=== PATIENT | female | born 1940 | race Caucasian/White ===

== ENCOUNTER 2017-12-31 14:47 | Outpatient (CLI) | payer MEDICARE, BC ==
[~2017-12-31 14:47] MED LIST: Gadobenate Dimeglumine 529 MG/1 ML (20ML VIAL) ONE
== END 2017-12-31 14:48 | disposition home or self-care (01) ==
LOC: BICMRI 14:47
PROVIDERS: ATTEND Internal Medicine
DX: R42 Dizziness and giddiness (principal); R11.0 Nausea; H91.93 Unspecified hearing loss, bilateral; G93.9 Disorder of brain, unspecified; T14.90XS Injury, unspecified, sequela
CPT/HCPCS: 70553; 82565; A9579

== ENCOUNTER 2018-03-23 14:32 | Inpatient (IN) | payer MEDICARE, BC ==
[2018-03-23 16:55] LABS: #Eosinphils 0.2 thou/uL (0.0-0.7); #Lymphocytes 0.9 thou/uL (1.20-3.40); #Monocytes 0.4 thou/uL (0.11-0.59); #Neutrophils 4.7 thou/uL (1.40-6.50); %Basophils 0.3 % (0.0-1.0); %Eosinophils 2.7 % (0.0-10.0); %Lymphocytes 14.6 % (21.0-51.0); %Neutrophils 75.5 % (42.0-75.0); Hemoglobin 12.9 g/dL (12.0-16.0); Mean Corpuscular HGB CONC 33.3 g/dL (32.0-36.0); Mean Corpuscular Hemoglobin 30.2 pg (27.0-31.0); Mean Corpuscular Volume 90.7 fL (78.0-98.0); Mean Platelet Volume 6.5 fL (7.4-10.4); Platelet Count 144 thou/uL (130-400); RBC Distribution Width 11.8 % (11.5-14.5); Red Blood Cell (RBC) Count 4.26 mill/uL (4.20-5.40); White Blood Cell (WBC) Count 6.2 thou/uL (4.8-10.8)
[2018-03-23 17:01] LABS: INR-International Normal Ratio 1.1; Prothrombin Time 14.7 SEC (12.0-14.7)
[2018-03-23 17:02] LABS: PTT 31.4 SEC (22.9-36.1)
--- NOTE | 2018-03-23 17:06 | RAD ---
LEFT HIP TWO VIEWS: 03/23/18 HISTORY: Fall. Left hip pain. FINDINGS: Cortical disruption at the subcapital level of the hip with mild valgus angulation. Mild degenerative changes of the hip. IMPRESSION: Subcapital fracture left hip. POS: [facility]
--- NOTE | 2018-03-23 17:07 | RAD ---
PORTABLE CHEST ONE VIEW: 03/23/18 at 4:02 p.m. HISTORY: Left sided rib pain, chest pain, trauma. FINDINGS/IMPRESSION: The heart size is borderline. The lungs are well expanded without lobar consolidation, pneumothoraces or pleural effusions. There are degenerative changes in the spine. POS: [facility]
[2018-03-23 17:21] LABS: ALT (SGPT) 9 U/L (8-55); AST (SGOT) 18 U/L (5-34); Albumin 3.9 g/dL (3.4-4.8); Alkaline Phosphatase 66 U/L (40-150); Anion Gap 10 mmol/L (10-20); BUN (Urea Nitrogen) 22 mg/dL (9.8-20.1); Bilirubin, Total 1.8 mg/dL (0.2-1.2); Calc. Creatinine Clearance 0 mL/min (70-130); Calcium 8.6 mg/dL (7.8-10.44); Carbon Dioxide 25 mmol/L (23-31); Chloride 101 mmol/L (98-107); Estimated GFR-MDRD 60; Glucose 106 mg/dL (83-110); Potassium 3.7 mmol/L (3.5-5.1); Protein, Total 5.9 g/dL (6.0-8.3); Sodium 132 mmol/L (136-145)
--- NOTE | 2018-03-23 17:22 | RAD ---
AP PELVIS 03/23/18 HISTORY: Fall. Left hip pain. FINDINGS/IMPRESSION: There is a subcapital fracture involving the left femur. POS: [facility]
[2018-03-23] MEDS ORDERED: Dextrose 50% Abboject 50 ML SYRINGE SLOW IVP PRN (17:25)
[2018-03-23] MEDS ORDERED: Dextrose 5% in Water 1,000 ML IV PRN (17:25)
[2018-03-23] MEDS ORDERED: traMADol HCl 50 MG TAB PO PRN (17:28)
--- NOTE | 2018-03-23 18:43 | CT ---
CT OF THE BRAIN WITHOUT CONTRAST: 03/23/18 INDICATION: History of fall with head injury. COMPARISON: MRI of the brain dated . FINDINGS: No acute infarct, hemorrhage or hydrocephalus is evident. No midline shift is present. Skull and extr acranial soft tissues are unremarkable. Chronic ischemic change and generalized cerebral atrophy is s table. IMPRESSION: No acute intracranial abnormality. POS: [facility]
--- NOTE | 2018-03-23 19:14 | HP ---
DATE OF ADMISSION: 03/23/2018 HISTORY OF PRESENT ILLNESS: Ms. Paula is a 77-year-old woman who lives independently. The patient was in her usual state of health yesterday. She had abducted a puppy recently. The patient recalls standing on one leg yesterday while she was trying to put on her shoes. She was tripped by her dog which came at her full speed. The patient was knocked down to the ground, striking her forehead, but denied any loss of consciousness. She was able to get up and has been trying to ambulate since yesterday. She immediately felt pain upon impact, however, have been using a cane to walk. Her pain had intensified. As a result, the patient presented to Emergency Department today. She denies any headaches, photophobia, dyspnea, syncope, or chest pain. She is usually very active. She walks about half a mile a day at a stretch without any shortness of breath. She exercises regularly. PAST MEDICAL HISTORY: Pertinent for hypothyroidism, gastroesophageal reflux disease, and chronic depression. PAST SURGICAL HISTORY: Pertinent for a transnasal surgery to repair a spinal fluid leak about 6 years ago. Traumatic brain injury with cerebral concussion, which happened about 7 years ago when she fell from a short ladder. SOCIAL HISTORY: The patient lives independently. She has no children. She admits to occasional intake of ethanol in moderate amount. She denies any cigarette smoking or illicit drug abuse. 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 FAMILY HISTORY: Noncontributory for this patient's age. PREHOSPITALIZATION MEDICATIONS: Include omeprazole 20 mg p.o. daily, bupropion 300 mg p.o. daily, Synthroid 75 mcg p.o. daily. REVIEW OF SYSTEMS: A 10-point review of systems essentially unremarkable except for as stated in past medical history and chief complaint. PHYSICAL EXAMINATION: GENERAL: This reveals a 77-year-old normally developed woman who is otherwise coherent and interactive and appears stated age. The patient is alert and oriented x3. She appears to be in no acute distress at the time of my evaluation. VITAL SIGNS: Include blood pressure 106/83, pulse is 88, respiratory rate 16, temperature is 98.2 degrees Fahrenheit. Oxygen saturation 96% on room air. She rates the pain now at 5/10. HEENT: Reveals a left forehead superficial laceration requiring no suture repair. No active bleeding or soft tissue hematoma is present. Both pupils are equal, round, and reactive to light and accommodation. Extraocular muscles are intact bilaterally. No scleral icterus is present. Oral mucosa is pink and moist. No lesions are noted. She has no nasal discharge present. Cervical spine is nontender to palpation, in the range of motion. CHEST: Chest wall is stable. No gross deformities or step-offs are present. CARDIOVASCULAR: Heart reveals regular rate and rhythm, no murmurs or gallops auscultated. LUNGS: Clear to auscultation bilaterally. Breathing regular and unlabored. ABDOMEN: Soft, nontender, nondistended. Bowel sounds in all four quadrants appear normoactive. Liver and spleen nonpalpable below costal margin. EXTREMITIES: Reveal 2+ radial and pedal pulses bilaterally. No ankle edema is present. MUSCULOSKELETAL: Reveals 5/5 muscle strength in bilateral upper and right lower extremities. Range of motion about the left hip is restricted due to pain. PERTINENT LABORATORY DATA: Today includes a CBC with 6200 white blood cell, hemoglobin and hematocrit 12.9 and 38.6 respectively. Platelet count is 144, 000. PTT and INR are normal at 31.4 seconds and 1.1 respectively. Metabolic profile : Sodium 132, potassium 3.7, chloride is 101, bicarbonate is 25, BUN 22, creatinine 0.91, glucose is 106. Total bilirubin is 1.8. AST and ALT 18 and 9 respectively. I personally reviewed all radiographic studies to include a chest x-ray which is unremarkable for any acute intrathoracic pathology. CT scan of the brain reveals no acute pathology. X-ray of the pelvis and left hip remarkable for complete left hip subcapital femur fracture. IMPRESSION: 1. Status post ground level fall. 2. Closed left hip subcapital femur fracture. 3. History of gastroesophageal reflux disease. 4. History of hypothyroidism. 5. History of chronic depression. PLAN: 1. Orthopedic surgical consultation with Dr. Lake regarding the left hip fracture. 2. Patient will be admitted to surgical floor. Nonpharmacological VTE prophylaxis will be initiated at this time. 3. We will ask Physical and occupational therapy to evaluate the patient following surgery. 4. We will also ask PM&R to evaluate the patient for possible inpatient rehabilitation post-discharge. 5. This patient is certainly hemodynamically and neurologically stable to proceed with orthopedic surgery for repair of the left hip fracture. She has at moderate risk for perioperative cardiopulmonary event. We will obtain a 12-lead EKG but given the patient's high functional and physical status , she does not require any further cardiac workup. The patient has indicated understanding of the information provided. She has granted consent for this admission. TRACEY
[2018-03-23] MEDS: Acetaminophen 500 MG TAB PO SCH (19:20)
[2018-03-23] MEDS ORDERED: CEFAZOLIN/Water 2 GM/20 ML SYRINGE SLOW IVP SCH (19:30)
[2018-03-23] MEDS: Senokot S 8.6-50 MG TAB PO SCH (20:36)
[2018-03-23] MEDS: Sodium Chloride 0.9% 1,000 ML IV SCH (20:36)
[2018-03-23 21:51] VITALS: BMI 23.3
[2018-03-24] MEDS: Acetaminophen 500 MG TAB PO SCH ×5 (00:06→23:34)
[2018-03-24] MEDS: Sodium Chloride 0.9% 1,000 ML IV SCH ×4 (02:39→21:02)
--- NOTE | 2018-03-24 03:53 | CON ---
ORTHOPEDIC CONSULTATION NOTE DATE OF CONSULTATION: 03/23/2018 REQUESTING PHYSICIAN: Dr. Mihir Kearnye. BRIEF HISTORY OF PRESENT ILLNESS: Ms. Paula is a 77-year-old lady who lives independently. She repo rts on the day prior to admission, she was trying to put on a pair of shoes when her puppy knocked he r to the ground. The patient struck her forehead as well as landed on her left hip. She was able to get up; however, has had increasing pain with attempted ambulation and as such presented to the [facility] department earlier this evening where workup included x-rays of her left hip that showed a nond isplaced femoral neck fracture. The patient now admitted to the Trauma Service with orthopedic consu ltation requested. PAST MEDICAL HISTORY: Remarkable for gastroesophageal reflux, hypothyroidism, and a history of depre ssion. PAST SURGICAL HISTORY: Includes prior traumatic brain injury with concussion following a fall with s ubsequent repair of a spinal fluid leak. MEDICATIONS: Include omeprazole, bupropion, and Synthroid. ALLERGIES: None known. FAMILY HISTORY: Noncontributory. SOCIAL HISTORY: The patient was independent. She reports alcohol consumption socially. She denies cigarette smoking or drug use. REVIEW OF SYSTEMS: Patient denies recent fevers, chills, or sweats. She denies chest pain or shortn ess of breath. She denies numbness or tingling in the lower extremities. PHYSICAL EXAMINATION: VITAL SIGNS: Temperature 98.2, heart rate of 88, respiratory rate of 16, and blood pressure 106/83. GENERAL: The patient is found to be awake, alert, and oriented. She is examined in her hospital bed on tower 3. HEENT: Remarkable for a superficial left forehead laceration that did not require suture repair. Ot herwise, atraumatic and normocephalic. HEART: Shows a regular rate and rhythm without murmur or gallop. LUNGS: Clear to auscultation with good breath sounds. Chest wall is nontender. ABDOMEN: Soft and nontender. PELVIS: Stable. EXTREMITIES: Remarkable for bilateral upper extremities that are atraumatic. Right lower extremity also atraumatic. Left lower extremity with an atraumatic knee, ankle, and foot. She is found to hav e groin pain with any type of log rolling of this left lower extremity. She also has pain to direct palpation in the groin region. Distally, she has intact sensation. She is wiggling her toes and has a 1+ dorsalis pedis pulse. X-RAYS: Two view x-ray of this left hip remarkable for a femoral neck fracture, but without displace ment. LABORATORY DATA: She is found to have a white count of 6.2, hematocrit of 38.6 and 144,000 platelets . She has an INR of 1.1. ASSESSMENT: A 77-year-old active lady who is a community ambulator without assisted device, now stat us post ground level fall at home. The patient found to have a nondisplaced femoral neck fracture. PLAN: At this time, the patient is admitted to the Trauma Service. We will plan to proceed with a c annulated screw stabilization of this nondisplaced fracture tomorrow early afternoon. Today, I discu ssed with patient the risks and benefits of surgery including alternatives. Alternatives including h emiarthroplasty or total hip replacement, which I believe is necessary given the nondisplaced nature of her fracture. The risks include, but are not limited to bleeding, infection, nerve injury, DVT, P E, malunion, nonunion, hardware failure, loss of limb or life. Patient appears to understand and harris s wish to proceed. Consent will be obtained prior to surgery tomorrow.
[2018-03-24 06:16] LABS: #Eosinphils 0.2 thou/uL (0.0-0.7); #Monocytes 0.5 thou/uL (0.11-0.59); #Neutrophils 4.3 thou/uL (1.40-6.50); %Basophils 0.1 % (0.0-1.0); %Monocytes 8.1 % (0.0-10.0); %Neutrophils 71.7 % (42.0-75.0); Hemoglobin 12.2 g/dL (12.0-16.0); Mean Corpuscular Hemoglobin 29.7 pg (27.0-31.0); Mean Corpuscular Volume 89.9 fL (78.0-98.0); Mean Platelet Volume 6.4 fL (7.4-10.4); Platelet Count 145 thou/uL (130-400); Red Blood Cell (RBC) Count 4.12 mill/uL (4.20-5.40)
[2018-03-24 06:23] LABS: Anion Gap 10 mmol/L (10-20); BUN (Urea Nitrogen) 17 mg/dL (9.8-20.1); Calc. Creatinine Clearance 57 mL/min (70-130); Calcium 8.6 mg/dL (7.8-10.44); Carbon Dioxide 26 mmol/L (23-31); Chloride 106 mmol/L (98-107); Estimated GFR-MDRD 64; Glucose 86 mg/dL (83-110); Magnesium 1.7 mg/dL (1.6-2.6); Phosphorus 2.9 mg/dL (2.3-4.7); Potassium 3.8 mmol/L (3.5-5.1); Sodium 138 mmol/L (136-145)
[2018-03-24] MEDS: Senokot S 8.6-50 MG TAB PO SCH ×2 (07:29→21:02)
[2018-03-24] MEDS: Polyethylene Glycol 3350 17 GM Packet PO SCH (07:29)
[2018-03-24] MEDS ORDERED: buPROPion 75 MG TAB PO SCH (09:00)
[2018-03-24] MEDS ORDERED: Ondansetron PF 4 MG/2 ML Vial ONE (10:54)
[2018-03-24] MEDS ORDERED: Glycopyrrolate 0.2 MG/ML 5 ML SYRINGE ONE (10:54)
[2018-03-24] MEDS ORDERED: PROPOFOL 200 MG/20 ML VIAL ONE (10:54)
[2018-03-24] MEDS ORDERED: Dexamethasone 20 MG/5 ML VIAL ONE (10:54)
[2018-03-24] MEDS ORDERED: Magnesium Sulfate 2 GM in Sodium Chloride 0.9% 100 ML IVPB SCH (12:00)
--- NOTE | 2018-03-24 12:09 | PRG ---
DATE OF SERVICE: 03/24/2018 SUBJECTIVE: Ms. Paula is a 77-year-old woman who was admitted following ground level fall, resulting in a closed left subcapital femoral fracture. This morning, she reports adequate pain control. She denies any nausea or vomiting, chest pain or dyspnea. Urinary output is adequate. OBJECTIVE: VITAL SIGNS: This morning includes blood pressure 113/71, pulse is 79, respiratory rate is 18, tempe rature is 98.4 degrees Fahrenheit, oxygen saturation 92% on room air. HEART: Reveals regular rate and rhythm. No murmurs or gallops auscultated. CHEST: Clear to auscultation bilaterally. Breathing is regular and unlabored. ABDOMEN: Soft, nontender, nondistended. EXTREMITIES: Reveals 2+ radial and pedal pulses bilaterally. No ankle edema is present. NEUROLOGIC: Reveals no focal deficits present. LABORATORY DATA: Today includes a CBC with 6000 white blood cells, hemoglobin and hematocrit stable at 12.2 and 37.0 respectively, platelet count is 145,000. Metabolic profile, sodium 138, potassium i s 3.8, chloride is 106, bicarbonate 26, BUN 17, creatinine 0.86, glucose is 86, magnesium 1.7, phosph orus is 2.9. IMPRESSION: 1. Post injury day number 2, status post ground level fall. 2. Closed left hip fracture. 3. Acute hypomagnesemia. 4. Acute hypokalemia. 5. Acute hypophosphatemia. PLAN: 1. Correct abnormal electrolytes. 2. The patient is hemodynamically stable to proceed with orthopedic surgery for repair of the left h ip fracture. Above findings and plan discussed with the patient who indicates understanding of the information giv en. We anticipate inpatient rehabilitation post discharge.
[2018-03-24] MEDS ORDERED: Potassium Phosphate 15 MMOL, Magnesium Sulfate 2 GM in Sodium Chloride 0.9% 250 ML 250 ML IVPB SCH (12:30)
[2018-03-24] MEDS ORDERED: CEFAZOLIN 2 GM/50 ML BAG ONE (13:07)
[2018-03-24] MEDS ORDERED: Fentanyl 100 MCG/2 ML VIAL ONE ×2 (15:15→15:52)
[2018-03-24] MEDS ORDERED: SUGAMMADEX SODIUM 200 MG/2 ML VIAL ONE (15:25)
[2018-03-24] MEDS ORDERED: Promethazine HCl 25 MG/ML VIAL SLOW IVP PRN ×2 (15:32→16:16)
[2018-03-24] MEDS ORDERED: Promethazine HCl 25 MG/ML VIAL IM PRN ×2 (15:32→16:16)
[2018-03-24] MEDS ORDERED: Ondansetron HCl/PF 4 MG/2 ML Vial IVP PRN ×2 (15:32→16:16)
--- NOTE | 2018-03-24 16:05 | RAD ---
LEFT HIP TWO VIEWS: History: Fracture. Comparison: 03-23-18 FINDINGS: Two fluoroscopic images were obtained. There are three percutaneous partially threaded fracture screw s through the left femoral neck in good position. IMPRESSION: Fluoroscopy time 42.9 seconds. POS: [facility]
--- NOTE | 2018-03-24 17:18 | EKG ---
Test Reason : PREOP Blood Pressure : / mmHG Vent. Rate : 078 BPM Atrial Rate : 078 BPM P-R Int : 164 ms QRS Dur : 086 ms QT Int : 390 ms P-R-T Axes : 029 054 073 degrees QTc Int : 444 ms Normal sinus rhythm Low voltage QRS No previous ECGs available Confirmed by DR. Mitzi LIU ([id number]) on 03/24/2018 5:18:23 PM Referred By: COLTON Confirmed By:DR. Mitzi LIU
[2018-03-24] MEDS: Aspirin 81 mg Enteric Coated Tablet PO SCH (21:02)
--- NOTE | 2018-03-24 21:39 | OP ---
DATE OF PROCEDURE: 03/24/2018 PREOPERATIVE DIAGNOSIS: Left femoral neck fracture. POSTOPERATIVE DIAGNOSIS: Left femoral neck fracture. SURGICAL PROCEDURE: Closed reduction and percutaneous screw fixation of left femoral neck. ANESTHESIA: General. SURGEON: Chilo Lake M.D. ESTIMATED BLOOD LOSS: 10 mL IMPLANTS: Synthes 7.3 mm cannulated screws x3. COMPLICATIONS: None. DRAINS: None. SPECIMEN: None. OUTCOME: Near anatomic alignment. INDICATIONS: The patient is a pleasant 77-year-old lady status post ground level fall at home sustai alex a nondisplaced left femoral neck fracture. After discussion with patient including risks and be nefits, we have decided to proceed with closed reduction and percutaneous screw fixation to stabilize the fracture in hopes of providing stability while healing occurs and returning the patient to her n ormal activities. Informed consent has been obtained. I believe all questions have been answered. DESCRIPTION OF PROCEDURE: The patient was brought to the operating room and a timeout performed foll owed by induction of general anesthesia. Next, the patient was positioned supine on the fracture tab le with the injured extremity held in longitudinal traction and the well leg scissored such that AP a nd lateral C-arm images of the left hip could be obtained. Next, a sterile prep and drape was perfor med of the left lateral thigh. A small vertical incision was made after C-arm localization for an ap propriate starting point for the guidewires. Once the skin was sharply incised, the initial inferior , but centrally positioned pin was applied and positioned under C-arm guidance. Once appropriately p ositioned, a superior anterior and superior posterior threaded guidewires were then passed respective ly using the jig. Next, measurement was taken off these guidewires and then the lateral cortices rich und each of the guidewires was further prepared with the cannulated drill. Next, each of the 3 screw s were inserted in standard technique under fluoroscopy guidance getting excellent compression and st abilization of the fracture. The threaded guidewires were then removed and final C-arm images obtain ed. The wound was then irrigated with bulb syringe and closed in layers with 2-0 Vicryl subcutaneous ly and then tram for the skin. Xeroform gauze and tape dressing was applied to the thigh and then the patient was transferred to recovery room in stable condition. There were no complications. The patient did tolerate the procedure well.
[2018-03-25] MEDS: traMADol HCl 50 MG TAB PO PRN (03:27)
[2018-03-25] MEDS: Acetaminophen 500 MG TAB PO SCH ×4 (05:50→22:22)
[2018-03-25] MEDS: Levothyroxine Sodium 75 MCG TAB PO SCH (05:50)
[2018-03-25 05:53] LABS: #Lymphocytes 0.5 thou/uL (1.20-3.40); #Monocytes 0.5 thou/uL (0.11-0.59); #Neutrophils 4.2 thou/uL (1.40-6.50); %Basophils 0.2 % (0.0-1.0); %Eosinophils 0.7 % (0.0-10.0); %Monocytes 10.1 % (0.0-10.0); %Neutrophils 78.9 % (42.0-75.0); Hemoglobin 11.5 g/dL (12.0-16.0); Mean Corpuscular HGB CONC 32.8 g/dL (32.0-36.0); Mean Corpuscular Hemoglobin 30.1 pg (27.0-31.0); Mean Corpuscular Volume 91.9 fL (78.0-98.0); Mean Platelet Volume 6.9 fL (7.4-10.4); Platelet Count 127 thou/uL (130-400); RBC Distribution Width 11.8 % (11.5-14.5); Red Blood Cell (RBC) Count 3.81 mill/uL (4.20-5.40); White Blood Cell (WBC) Count 5.3 thou/uL (4.8-10.8)
[2018-03-25 06:11] LABS: Anion Gap 10 mmol/L (10-20); BUN (Urea Nitrogen) 16 mg/dL (9.8-20.1); Calc. Creatinine Clearance 66 mL/min (70-130); Carbon Dioxide 25 mmol/L (23-31); Chloride 106 mmol/L (98-107); Estimated GFR-MDRD 76; Glucose 96 mg/dL (83-110); Phosphorus 3.3 mg/dL (2.3-4.7); Potassium 4.2 mmol/L (3.5-5.1); Sodium 137 mmol/L (136-145)
[2018-03-25] MEDS: Sodium Chloride 0.9% 1,000 ML IV SCH (09:48)
[2018-03-25] MEDS: Bupropion 150 MG XL TAB PO SCH (09:58)
[2018-03-25] MEDS: Aspirin 81 mg Enteric Coated Tablet PO SCH ×2 (09:58→22:20)
[2018-03-25] MEDS: Senokot S 8.6-50 MG TAB PO SCH ×2 (09:59→23:03)
[2018-03-25] MEDS: Polyethylene Glycol 3350 17 GM Packet PO SCH (09:59)
--- NOTE | 2018-03-25 12:29 | PRG ---
DATE OF SERVICE: 03/25/2018 SUBJECTIVE: Ms. Paula is a 77-year-old woman admitted for a ground level fall resulting in a left subcapital femoral neck fracture. The patient is postoperative day #1. She states that her pain is surprisingly improved. She did have a Hoskins catheter placed last night for patient comfort, and she is still on IV fluids at 100 mL per hour. The patient is tolerating a diet and has yet to work with PT today. OBJECTIVE: VITAL SIGNS: Temperature is 98.3, blood pressure 114/72, heart rate is 73, respiratory rate is 16. She is 95% on room air. GENERAL: This is a 77-year-old female lying supine in bed, in no acute distress. HEENT: Normocephalic, atraumatic. NECK: Trachea is midline. No JVD is appreciated. RESPIRATORY: Equal rise and fall. Bilateral breath sounds clear to auscultation upper and lower bilaterally. CARDIOVASCULAR: Regular rate and rhythm. No murmurs appreciated. ABDOMEN: Soft, nontender. EXTREMITIES: Slight tenderness to left hip, dressings dry. Moves all extremities well. She does have sensation to all of her extremities and strong pulses. PSYCHIATRIC: Normal mood and affect. NEUROLOGIC: Alert and oriented to person, place, time, and event. SKIN: [place], warm and dry. LABORATORY DATA: From today, white blood cell count of 5.3, platelets of 127, hemoglobin and hematocrit 11.5 and 35.0 respectively. Chemistry: Sodium is 137 , potassium is 4.2, chloride is 106, CO2 is 25, BUN is 16, creatinine is 0.74. Phos is 3.3 and mag is 2.0. ASSESSMENT: 1. Postop day #1, postinjury day #3, status post ground level fall. 2. Subcapital left hip fracture. 3. Acute hypomagnesemia, resolved. 4. Acute hypokalemia, resolved. 5. Acute hypophosphatemia, resolved. 6. Acute traumatic pain, improving. PLAN: 1. Continue to monitor electrolytes. No replacement needed this morning. Continue regular diet. 2. The patient is hemodynamically stable. We will work with PT. 3. Rehab screen has been placed. 4. Hope to discharge tomorrow or over this weekend to inpatient rehabilitation. 5. Remove Hoskins catheter. I have explained to the patient, she verbalizes understanding. 6. Stop IV fluids. 7. Pain control as needed. 8. Continue all other supportive care including DVT prophylaxis. This plan was discussed with Dr. Kearney and can be updated as needed. TRACEY
[2018-03-25] MEDS ORDERED: Cepastat Lozenges 1 LOZ PO PRN (20:30)
[2018-03-26] MEDS: Levothyroxine Sodium 75 MCG TAB PO SCH (05:53)
[2018-03-26] MEDS: Acetaminophen 500 MG TAB PO SCH (05:53)
[2018-03-26] MEDS: Aspirin 81 mg Enteric Coated Tablet PO SCH (09:28)
[2018-03-26] MEDS: Polyethylene Glycol 3350 17 GM Packet PO SCH (09:28)
[2018-03-26] MEDS: Bupropion 150 MG XL TAB PO SCH (09:28)
[2018-03-26] MEDS: Senokot S 8.6-50 MG TAB PO SCH (09:28)
[2018-03-26] MEDS: traMADol HCl 50 MG TAB PO PRN (09:31)
[2018-03-26 16:09] VITALS: BP 122/80; TEMP 98.1
--- NOTE | 2018-03-26 20:07 | DIS ---
DATE OF ADMISSION: 03/23/2018 DATE OF DISCHARGE: 03/26/2018 ADMISSION DIAGNOSES: 1. Status post ground level fall. 2. Left subcapital femur fracture. 3. History of gastroesophageal reflux disease. 4. History of hypothyroidism. 5. History of depression. 6. Acute traumatic pain. DISCHARGE DIAGNOSES: 1. Status post ground level fall. 2. Left subcapital femur fracture. 3. History of gastroesophageal reflux disease. 4. History of hypothyroidism. 5. History of depression. 6. Acute traumatic pain. ENTRY LEVEL MANAGER: Dr. Lake, Orthopedic Surgery. PROCEDURES: On 03/24/2018, closed reduction and percutaneous screw fixation of the left femoral neck with Dr. Lake. HOSPITAL COURSE: This is a 77-year-old female who presented to [facility] after susta ining a mechanical fall. She was found to have the above injuries. Orthopedic Surgery evaluated the patient and she underwent operative intervention to her injuries on 03/24/2018. Postoperatively, th e patient did well. Pain was controlled via p.o. analgesics. She was mobilizing with physical thera py and tolerating a general diet. She was seen and evaluated by inpatient rehabilitation and evelioe d on 03/26/2018 after clearance with the consulting teams. She was deemed medically stable for disch arge on 03/26/2018. DISCHARGE DISPOSITION: Inpatient rehabilitation. DISCHARGE CONDITION: Good. PHYSICAL EXAMINATION: VITAL SIGNS: Temperature 97.8, pulse 72, respirations 16, O2 sat 97% on room air, blood pressure 149 /76. GENERAL: Elderly appearing female in no acute distress, sitting in bed. PULMONARY: Normal work of breathing, symmetric rise. CARDIOVASCULAR: Regular rate and rhythm. GASTROINTESTINAL: Abdomen is soft, nontender, nondistended. MUSCULOSKELETAL: Moves all extremities x4. NEUROLOGIC: No focal deficit is noted. DISCHARGE INSTRUCTIONS: Discharge instructions were provided to the patient and the accepting facili ty. She is 50% weightbearing to the left lower extremity. She should keep her surgical site clean a nd dry. DISCHARGE MEDICATIONS: Discharge medications were as documented in the electronic medical record. A list of which was provided to the accepting facility. FOLLOWUP APPOINTMENTS: The patient should follow up with her primary care provider as needed. She s hould follow up with orthopedic surgery/Dr. Lake in approximately 14 days. She does not need to follow up formally with Trauma Services, but may call our office with any questions. This is merely a summary of the patient's hospitalization. For more in depth information, please see her medical re cord in its entirety.
== END 2018-03-26 16:15 | DRG 482 ==
LOC: ERS 14:32 → SJJU 18:44
PROVIDERS: ADMIT Orthopaedic Surgery; ATTEND Orthopaedic Surgery
PROC: 0QS734Z Reposition Left Upper Femur with Internal Fixation Device, Percutaneous Approach (ICD-10-PCS; principal; 2018-03-24)
DX: S72.012A Unspecified intracapsular fracture of left femur, initial encounter for closed fracture (principal); W01.0XXA Fall on same level from slipping, tripping and stumbling without subsequent striking against object, initial encounter; Y92.019 Unspecified place in single-family (private) house as the place of occurrence of the external cause; S01.81XA Laceration without foreign body of other part of head, initial encounter; E03.9 Hypothyroidism, unspecified; K21.9 Gastro-esophageal reflux disease without esophagitis; F32.9 Major depressive disorder, single episode, unspecified; Z87.820 Personal history of traumatic brain injury; E83.42 Hypomagnesemia; E87.6 Hypokalemia; E83.39 Other disorders of phosphorus metabolism; G89.11 Acute pain due to trauma
CPT/HCPCS: 36415; 70450; 71045; 72170; 76001; 80048; 80053; 83735; 84100; 85025; 85610; 85730; 93005; 93010; C1713; C1769; G8978-GP-CK; G8979-GP-CI; G8987-GO-CK; G8988-GO-CI; J3010; J3475; J7050

== ENCOUNTER 2018-03-26 19:00 | Observation (INO) | payer MEDICARE, BC ==
[2018-03-26] MEDS ORDERED: Adenosine 6 MG/2 ML VIAL ONE (19:09)
[2018-03-26 20:03] LABS: #Eosinphils 0.4 thou/uL (0.0-0.7); #Lymphocytes 1.1 thou/uL (1.20-3.40); #Monocytes 0.6 thou/uL (0.11-0.59); #Neutrophils 5.3 thou/uL (1.40-6.50); %Basophils 0.1 % (0.0-1.0); %Eosinophils 5.7 % (0.0-10.0); %Lymphocytes 14.5 % (21.0-51.0); %Monocytes 8.7 % (0.0-10.0); Hemoglobin 13.8 g/dL (12.0-16.0); Mean Corpuscular HGB CONC 32.8 g/dL (32.0-36.0); Mean Corpuscular Hemoglobin 30.1 pg (27.0-31.0); Mean Corpuscular Volume 91.7 fL (78.0-98.0); Mean Platelet Volume 6.9 fL (7.4-10.4); Platelet Count 187 thou/uL (130-400); RBC Distribution Width 11.9 % (11.5-14.5); White Blood Cell (WBC) Count 7.5 thou/uL (4.8-10.8)
[2018-03-26 20:35] LABS: ALT (SGPT) 11 U/L (8-55); AST (SGOT) 23 U/L (5-34); Albumin 3.8 g/dL (3.4-4.8); Alkaline Phosphatase 77 U/L (40-150); Anion Gap 12 mmol/L (10-20); BUN (Urea Nitrogen) 15 mg/dL (9.8-20.1); Bilirubin, Total 0.6 mg/dL (0.2-1.2); CK (CPK) 98 U/L (29-168); Calc. Creatinine Clearance 0 mL/min (70-130); Carbon Dioxide 25 mmol/L (23-31); Chloride 105 mmol/L (98-107); Estimated GFR-MDRD 60; Globulin 2.3 g/dL (2.4-3.5); Glucose 112 mg/dL (83-110); Protein, Total 6.1 g/dL (6.0-8.3); Sodium 138 mmol/L (136-145)
--- NOTE | 2018-03-26 20:36 | RAD ---
UPRIGHT PORTABLE CHEST ONE VIEW: 03/26/18 HISTORY: 77-year-old female with history of SVT, heart rate at 160 beats per minute. COMPARISON: 03/23/18 FINDINGS: Heart size is within normal limits. Stable increased linear and interstitial markings. No significant cardiomegaly. No pleural effusion. No confluent pneumonia. IMPRESSION: Stable chest. No acute process. POS: [facility]
[2018-03-26 20:39] LABS: CKMB 2.3 ng/mL (0-6.6); Troponin I Less than 0.010 ng/mL (< 0.028)
[2018-03-26] MEDS ORDERED: Ondansetron PF 4 MG/2 ML Vial IVP PRN ×2 (22:25)
[2018-03-26] MEDS ORDERED: Nitroglycerin 0.4 MG TAB (25 Tab Bottle) SL PRN (22:25)
[2018-03-26] MEDS ORDERED: Benzonatate 100 MG CAP PO PRN (22:25)
[2018-03-26] MEDS ORDERED: Acetaminophen 325 MG TAB PO PRN (22:25)
[2018-03-26] MEDS ORDERED: Sodium Chloride 0.65% Nasal 44 ML BOT EA NARE PRN (22:25)
[2018-03-26] MEDS ORDERED: Bisacodyl 5 MG TAB PO PRN (22:25)
[2018-03-26] MEDS ORDERED: Senokot S 8.6-50 MG TAB PO PRN (22:25)
[2018-03-26] MEDS ORDERED: hydrALAZINE 20 MG/ML VIAL SLOW IVP PRN (22:25)
[2018-03-26] MEDS ORDERED: Diabetic Tussin 200 MG/10 ML UDCUP PO PRN (22:25)
[2018-03-26] MEDS ORDERED: cloNIDine 0.1 MG TAB PO PRN (22:25)
[2018-03-26 23:13] LABS: Troponin I Less than 0.010 ng/mL (< 0.028)
[2018-03-27 00:46] VITALS: BMI 23.8
[2018-03-27 01:44] LABS: Troponin I 0.021 ng/mL (< 0.028)
[2018-03-27] MEDS ORDERED: traMADol HCl 50 MG TAB PO PRN ×4 (03:19→04:43)
[2018-03-27 03:58] LABS: #Eosinphils 0.3 thou/uL (0.0-0.7); #Monocytes 0.6 thou/uL (0.11-0.59); #Neutrophils 3.4 thou/uL (1.40-6.50); %Basophils 0.4 % (0.0-1.0); %Eosinophils 5.5 % (0.0-10.0); %Lymphocytes 19.1 % (21.0-51.0); %Monocytes 10.9 % (0.0-10.0); %Neutrophils 64.1 % (42.0-75.0); Hemoglobin 12.3 g/dL (12.0-16.0); Mean Corpuscular HGB CONC 32.4 g/dL (32.0-36.0); Mean Corpuscular Hemoglobin 29.6 pg (27.0-31.0); Mean Corpuscular Volume 91.2 fL (78.0-98.0); Mean Platelet Volume 6.6 fL (7.4-10.4); Platelet Count 180 thou/uL (130-400); RBC Distribution Width 11.9 % (11.5-14.5); Red Blood Cell (RBC) Count 4.16 mill/uL (4.20-5.40); White Blood Cell (WBC) Count 5.3 thou/uL (4.8-10.8)
[2018-03-27 04:05] LABS: Anion Gap 12 mmol/L (10-20); BUN (Urea Nitrogen) 15 mg/dL (9.8-20.1); Calc. Creatinine Clearance 62 mL/min (70-130); Calcium 8.5 mg/dL (7.8-10.44); Carbon Dioxide 24 mmol/L (23-31); Chloride 105 mmol/L (98-107); Estimated GFR-MDRD 70; Glucose 105 mg/dL (83-110); Potassium 3.7 mmol/L (3.5-5.1); Sodium 137 mmol/L (136-145)
[2018-03-27] MEDS ORDERED: Cepastat Lozenges 1 LOZ PO PRN (04:43)
[2018-03-27] MEDS ORDERED: Acetaminophen 500 MG TAB PO PRN (04:54)
--- NOTE | 2018-03-27 05:56 | HP ---
DATE OF ADMISSION: 03/27/2018 PRIMARY CARE PHYSICIAN: Emma Abad M.D. CHIEF COMPLAINT: Palpitations and anxiety. HISTORY OF PRESENT ILLNESS: Ms. Paula is a very pleasant 77-year-old female with past medical histor y of arrhythmia about 20 years ago as well as history of hypothyroidism, depression, anxiety and GERD who presented to the hospital with above-mentioned complaint. History is mainly obtained by the pat ient herself and electronic medical records have been reviewed. Ms. Paula was discharged earlier yesterday after being admitted to Trauma Services for a left femur f racture. She was discharged to [facility]. Ms. Paula reports that she did not really like the room arrangement at [facility] where she was fernando ing a room with another person as she did not know this beforehand. She got very anxious and started to have palpitations and was brought back to the emergency room last night. In the ER, she was hemodynamically stable with a blood pressure of 134/99, but her heart rate was in the 170s and the EKG showed SVT. She received 1 dose of IV adenosine 6 mg x1 and that aborted her SV T and put her in normal sinus rhythm. She is now being admitted for further evaluation under observa tion status. At the time of my exam, she is quite comfortable and denies any chest pain, shortness o f breath or palpitations. color television console monitor shows normal sinus rhythm. She reports similar symptoms about 20 years ago, but nothing reoccurring. She was never treated with ablation or cardioversion or blood thinner medications in the past. PAST MEDICAL HISTORY: 1. Hypothyroidism. 2. GERD. PAST SURGICAL HISTORY: History of traumatic brain injury with concussion following a fall with subse quent repair of a spinal fluid leak. ALLERGIES: No medication allergies. FAMILY HISTORY: Denies any family history of stroke or cancer. CURRENT HOME MEDICATIONS: As follows: Tramadol p.r.n., Wellbutrin XL 300 in the morning, Senokot b. i.d., Protonix 40 mg daily, levothyroxine 150 mcg daily, aspirin 81 mg p.o. b.i.d., Tylenol p.r.n., t ramadol p.r.n. REVIEW OF SYSTEMS: A 12-point review of systems was done. It is negative except for those mentioned in the history and physical. LABORATORY DATA: Her CBC and serum chemistries are rather unimpressive and within normal range. Car diac enzymes trended. Troponin negative x3. TSH normal. Chest x-ray by my review has no evidence t o suggest pleural effusion, edema or infiltrate. A 12-lead EKG done in the ER was consistent with SV T with a repeat 12-lead EKG showing sinus rhythm without any acute ST or T-wave changes by my review. PHYSICAL EXAMINATION: VITAL SIGNS: Most recent vital signs, temperature 98.1, pulse of 72, blood pressure 112/58, respirat ions 18, saturating 99%-94% on room air. GENERAL: No acute distress, awake, alert, oriented x3. HEENT: Mucous membrane is moist and pink. No oropharyngeal exudate or erythema. Head is normocepha lic, atraumatic. Pupils are equal and reactive to light and accommodation. Extraocular movements in tact. NECK: Supple without any lymphadenopathy, JVD or bruit. CHEST: Clear to auscultation without any wheezing, rales or rhonchi. CARDIOVASCULAR: Rate and rhythm is regular without any murmur, rubs or gallops. ABDOMEN: Soft, nontender, nondistended with positive bowel sounds. EXTREMITIES: Free of any cyanosis, clubbing or edema. NEUROLOGIC: Nonfocal. SKIN: Free of any rashes or bruises. Feel warm and dry to touch. PSYCHIATRIC: Normal affect. IMPRESSION AND PLAN: 1. Nonsustained supraventricular tachycardia, status post adenosine. She will be admitted to teleme try under observation status. Currently normal sinus rhythm. We will consult Cardiology and get a t ransthoracic echocardiogram. The patient might benefit from EP study, but this can be done as an out patient as she is currently in sinus rhythm and hemodynamically stable. 2. Hypothyroidism. TSH was checked and is unremarkable. We will restart her levothyroxine. 3. Left femur fracture. Continue aspirin b.i.d. and pain control as needed. 4. Code status: Full code. Discussed with the patient. 5. Add p.r.n. medication orders. DISPOSITION: Ms. Paula is currently being admitted to the hospital with an episode of SVT, which was successfully treated with adenosine. She is currently under observation status. Further management will depend upon her clinical course.
[2018-03-27] MEDS ORDERED: Acetaminophen 500 MG TAB PO SCH (06:00)
[2018-03-27] MEDS: Levothyroxine 150 MCG TAB PO SCH (06:31)
[2018-03-27] MEDS: Famotidine 20 MG TAB PO SCH (08:49)
[2018-03-27] MEDS: Aspirin 81 mg Enteric Coated Tablet PO SCH ×2 (08:49→20:55)
[2018-03-27] MEDS: Bupropion 150 MG XL TAB PO SCH (08:49)
[2018-03-27] MEDS: Senokot S 8.6-50 MG TAB PO SCH ×2 (08:50→20:55)
[2018-03-27] MEDS: Enoxaparin Sodium 40 MG/0.4 ML SYRINGE SC SCH (08:52)
[2018-03-27] MEDS ORDERED: Polyethylene Glycol OPTH DROP 15 ML BOT EA EYE PRN (10:55)
--- NOTE | 2018-03-27 15:57 | CON ---
DATE OF CONSULTATION: 03/27/2018 HISTORY OF PRESENT ILLNESS: The patient is a 77-year-old woman who presented with acute onset of palpitations. The patient states on rare occasions in the distant past, she has had palpitations. She states she was in her usual state of health until she recently had a fall. She underwent hip surgery. She went to rehab and then noticed having palpitations. The patient was sent back to [place] for further evaluation. The patient denied having any chest pain or dyspnea. PAST MEDICAL HISTORY: 1. Hypothyroidism. 2. GE reflux. PAST SURGICAL HISTORY: Traumatic brain injury from her fall. FAMILY HISTORY: No strong family history of heart disease. MEDICATIONS ON ADMISSION: Aspirin 81 b.i.d., Synthroid 150 daily, Protonix 40 daily, and Wellbutrin 300 q.a.m. REVIEW OF SYSTEMS: A 10-point system unremarkable. PHYSICAL EXAMINATION: VITAL SIGNS: Blood pressure 113/75. NECK: No jugular venous distention. LUNGS: Clear to auscultation. HEART: Regular rate and rhythm. Normal S1, S2. No murmurs. ABDOMEN: Nondistended. EXTREMITIES: Showed no edema. LABORATORY RESULTS: White blood cell count 5.3, hemoglobin 12.3, hematocrit 38.0, platelets are 180,000. Her EKG revealed supraventricular tachycardia. IMPRESSION: 1. Supraventricular tachycardia. 2. History of femur fracture. 3. History of traumatic brain injury. This patient presented with rapid supraventricular tachycardia. She converted with adenosine. I discussed in detail whether the patient would like to undergo an ablation or be placed on medical therapy. The patient strongly prefers to be treated medically. The patient will be started on Cardizem. We will check the echocardiogram. We will follow this patient with you through her hospitalization. TRACEY
--- NOTE | 2018-03-27 16:29 | PDOC.PN ---
- Subjective Encounter Start Date: 03/27/18 Encounter Start Time: 15:00 Subjective: f/u on admission for SVT from Rehab -: Patient denies chest pain, palpations today -: Reports mild pain to left hip/femur - Objective Resuscitation Status: Resuscitation Status FULL:Full Resuscitation Vital Signs & Weight: Vital Signs (12 hours) Temp Pulse Pulse Pulse Resp BP BP 03/27/18 15:15 98.1 F 74 20 03/27/18 14:37 74 67 140/67 150/71 H 03/27/18 11:34 98.3 F 66 16 03/27/18 10:45 75 75 122/75 113/75 03/27/18 07:20 98.7 F 70 16 BP Pulse Ox 03/27/18 15:15 140/67 96 03/27/18 14:37 03/27/18 11:34 113/75 96 03/27/18 10:45 03/27/18 07:20 139/68 91 L Weight Weight 66.86 kg I&O: 03/26/18 03/27/18 03/28/18 06:59 06:59 06:59 Intake Total 140 50 Output Total 750 1000 Balance -610 -950 Result Diagrams: 03/27/18 01:09 03/27/18 01:09 Phys Exam - Physical Examination Constitutional: NAD HEENT: PERRLA, moist MMs Neck: no nodes Respiratory: no rhonchi, clear to auscultation bilateral Cardiovascular: RRR, no significant murmur Gastrointestinal: soft, non-tender Musculoskeletal: no edema, pulses present mild pain to left hip/proximal femur with palpation Neurological: non-focal, normal sensation Lymphatic: no nodes Psychiatric: normal affect, A&O x 3 Skin: no rash, normal turgor Dx/Plan (1) SVT (supraventricular tachycardia) Code(s): I47.1 - SUPRAVENTRICULAR TACHYCARDIA Status: Resolved Plan: ECHO (2) Hx of fracture of femur Code(s): Z87.81 - PERSONAL HISTORY OF (HEALED) TRAUMATIC FRACTURE Status: Acute - Plan cont current plan of care -: Cardizem PO started and ECHO ordered, Dr. Fan has seen patient -: Will monitor labs, VS, heart rhythm overnight -: Possible DC back to Rehab tomorrow * .
[2018-03-28 04:23] LABS: #Eosinphils 0.3 thou/uL (0.0-0.7); #Lymphocytes 1.2 thou/uL (1.20-3.40); #Monocytes 0.6 thou/uL (0.11-0.59); #Neutrophils 3.3 thou/uL (1.40-6.50); %Basophils 0.6 % (0.0-1.0); %Eosinophils 5.4 % (0.0-10.0); %Lymphocytes 21.6 % (21.0-51.0); %Monocytes 11.5 % (0.0-10.0); %Neutrophils 60.9 % (42.0-75.0); Hemoglobin 12.5 g/dL (12.0-16.0); Mean Corpuscular Hemoglobin 29.6 pg (27.0-31.0); Mean Corpuscular Volume 89.7 fL (78.0-98.0); Mean Platelet Volume 6.4 fL (7.4-10.4); Platelet Count 187 thou/uL (130-400); RBC Distribution Width 11.6 % (11.5-14.5); Red Blood Cell (RBC) Count 4.21 mill/uL (4.20-5.40); White Blood Cell (WBC) Count 5.4 thou/uL (4.8-10.8)
[2018-03-28 04:32] LABS: ALT (SGPT) 11 U/L (8-55); AST (SGOT) 17 U/L (5-34); Albumin 3.4 g/dL (3.4-4.8); Alkaline Phosphatase 61 U/L (40-150); Anion Gap 12 mmol/L (10-20); BUN (Urea Nitrogen) 17 mg/dL (9.8-20.1); Bilirubin, Total 0.6 mg/dL (0.2-1.2); Calc. Creatinine Clearance 63 mL/min (70-130); Calcium 8.7 mg/dL (7.8-10.44); Carbon Dioxide 22 mmol/L (23-31); Chloride 107 mmol/L (98-107); Estimated GFR-MDRD 71; Globulin 1.9 g/dL (2.4-3.5); Glucose 107 mg/dL (83-110); Protein, Total 5.3 g/dL (6.0-8.3); Sodium 137 mmol/L (136-145)
[2018-03-28] MEDS: Levothyroxine 150 MCG TAB PO SCH (05:48)
[2018-03-28] MEDS: Enoxaparin Sodium 40 MG/0.4 ML SYRINGE SC SCH (08:05)
[2018-03-28] MEDS: Senokot S 8.6-50 MG TAB PO SCH (08:06)
[2018-03-28] MEDS: Aspirin 81 mg Enteric Coated Tablet PO SCH (08:06)
[2018-03-28] MEDS: Bupropion 150 MG XL TAB PO SCH (08:06)
[2018-03-28] MEDS: Famotidine 20 MG TAB PO SCH (08:07)
[2018-03-28 08:14] VITALS: TEMP 98.5
[2018-03-28 11:49] VITALS: BP 118/67
--- NOTE | 2018-03-28 14:56 | DIS ---
DATE OF ADMISSION: 03/27/2018 DATE OF DISCHARGE: 03/28/2018 DISCHARGE DIAGNOSES: 1. Nonsustained supraventricular tachycardia, resolved. 2. History of hypothyroidism, stable. 3. History of fracture of left femur, status post open reduction and internal fixation, stable. CONSULTATIONS: Cardiology services, Dr. Remy Fan. PERTINENT LABORATORY AND DIAGNOSTIC IMAGING: WBC 5.4, RBC 4.21, hemoglobin 12.5 , platelets 187. Sodium 137, potassium 4.0, creatinine 0.79. Troponin less than 0.010 x2 and 0.021. TSH 1.8. Portable chest x-ray showed stable chest, no acute process. Echocardiogram displayed left ventricular ejection fraction visually estimated at 55% -60%, normal-sized left atrium, left ventricular size is normal, mild mitral regurgitation is present, mild tricuspid regurgitation, but was noted to have impaired relaxation compatible with diastolic dysfunction. HOSPITAL COURSE: Ms. Paula is a pleasant 77-year-old female, who had presented to the ER with complaints of palpitations. It was at that time that her EKG showed SVT with rates in the 160s. She was given a single dose of IV adenosine 6 mg and was successfully converted to sinus rhythm. She was then admitted to telemetry services for further observation symptoms. Cardiology services were contacted, which included Dr. Remy Fan. It was at that time that she was started on oral Cardizem 120 mg daily and tolerated well. She also underwent echocardiogram, which showed an EF of 55%-60%. Throughout hospital course, she remained asymptomatic and in sinus rhythm on the monitor. She was seen and examined prior to discharge. She had denied chest pain, shortness of breath, or abdominal pain. Dr. Fan recommended she follow up as outpatient for stress test. He had recommended she stay on diltiazem 120 mg daily, post discharge. It was arranged that she would return back to [facility] for physical therapy from recent left femur fracture. She was determined medically stable for discharge back to [facility] on 03/28/2018. DISCHARGE MEDICATIONS: 1. Diltiazem 120 mg oral daily. 2. Bupropion 300 mg oral every morning. 3. Levothyroxine 150 mcg oral daily. 4. Acetaminophen 1000 mg oral every 6 hours. 5. Aspirin 81 mg twice daily. 6. 1oncess ounce oral every hour as needed for sore throat. 7. Pantoprazole 40 mg oral daily. 8. Senokot 1 tab oral twice daily. 9. Tramadol 50 mg every 6 hours as needed for moderate pain. 10. Tramadol 100 mg oral every 6 hours as needed for severe pain. 11. Systane Ultra lubricant eye drops, 1-2 drops each eye as directed as needed for dry eyes. FOLLOWUP: The patient is to follow up with primary care physician, Dr. Emma Abad, in 1-2 weeks. She is also to follow up with Dr. Fan, vp customer service, in 2-4 weeks. CONDITION ON DISCHARGE: Stable. ACTIVITY: Weightbearing as tolerated. DIET: Heart healthy. CODE STATUS: FULL CODE. DISPOSITION: [facility] inpatient rehabilitation center on 03/28/2018. MTDD
--- NOTE | 2018-04-01 17:21 | EKG ---
Test Reason : ER INDICATION Blood Pressure : / mmHG Vent. Rate : 163 BPM Atrial Rate : 156 BPM P-R Int : 000 ms QRS Dur : 070 ms QT Int : 268 ms P-R-T Axes : 000 042 085 degrees QTc Int : 441 ms Supraventricular tachycardia Septal infarct , age undetermined Abnormal ECG Confirmed by JOSHUA MUNSON, GASPER ([id number]), proposal editor JANNETH BAILON ([id number]) on 04/01/2018 5:20:37 PM Referred By: Confirmed By:GASPER LEWIS MD
== END 2018-03-28 14:33 ==
LOC: ERS 19:00 → 2SW 03-27 00:24
PROVIDERS: ADMIT Internal Medicine; ATTEND Internal Medicine
DX: I47.1 Supraventricular tachycardia (principal); F41.9 Anxiety disorder, unspecified; E03.9 Hypothyroidism, unspecified; F32.9 Major depressive disorder, single episode, unspecified; K21.9 Gastro-esophageal reflux disease without esophagitis; Z87.820 Personal history of traumatic brain injury; Z87.81 Personal history of (healed) traumatic fracture; Z79.82 Long term (current) use of aspirin; Z79.899 Other long term (current) drug therapy; Z98.890 Other specified postprocedural states
CPT/HCPCS: 71045; 80048; 80053; 82550; 82553; 84484 ×3; 85025 ×2; 92960; 93005; 93306; 96372; 96374; 97110; 97116 ×2; 97139 ×4; 97530 ×2; 99285; G0378 ×2; G8978; G8979; G8987; G8988; 36415; 84443; J0153; J1650

== ENCOUNTER 2018-09-15 11:31 | Outpatient (CLI) | payer MEDICARE, BC ==
--- NOTE | 2018-09-15 12:05 | BD ---
DEXA BONE DENSITY SCAN: Date: 09/15/18 COMPARISON: None. HISTORY: Postmenopausal female undergoing screening for osteoporosis. FINDINGS: Lumbar Spine BMD (g/cm2) L1 0.832 T-Score -1.4 L2 0.939 T-Score -0.8 L3 1.036 T-Score -0.4 L4 1.067 T-Score 0.1 L1-L4 0.969 T-Score -0.7 Femoral Neck 0.592 T-Score -2.3 Total Femur 0.814 T-Score -1.1 FRAX-WHO fracture risk assessment tool is not reported secondary to a provided history of prior hip o r vertebral fracture. IMPRESSION: Osteopenia within the femoral neck, correlating with a moderately increased risk for fracture. Overal l lumbar spine bone mineral density is within normal range. POS: OFF
--- NOTE | 2018-09-15 13:03 | RAD ---
XR Chest Pa Lat STANDARD HISTORY:Shortness of breath COMPARISON: 03/26/2018 study. FINDINGS: Heart size is borderline. There are atherosclerotic changes of the aorta. Mild chronic lung changes are stable. IMPRESSION: Stable exam.
--- NOTE | 2018-09-15 13:13 | MMO ---
Bilateral MAMMO Bilat Screen [facility]. CLINICAL HISTORY: Patient is 77 years old and is seen for screening. The patient has no family history of breast cancer. The patient has no personal history of cancer. VIEWS: The views performed were: bilateral craniocaudal with tomosynthesis and bilateral mediolateral oblique with tomosynthesis. FILMS COMPARED: The present examination has been compared to prior imaging studies performed at [facility] on 09/29/2011, 03/09/2013, 04/05/2014, 07/02/2015 and 08/25/2016. MAMMOGRAM FINDINGS: There are scattered fibroglandular densities. There are no suspicious masses, suspicious calcifications, or new areas of architectural distortion. IMPRESSION: THERE IS NO MAMMOGRAPHIC EVIDENCE OF MALIGNANCY. A ROUTINE FOLLOW-UP MAMMOGRAM IN 1 YEAR IS RECOMMENDED. THE RESULTS OF THIS EXAM WERE SENT TO THE PATIENT. ACR BI-RADS Category 1 - Negative MAMMOGRAPHY NOTE: 1. A negative mammogram report should not delay a biopsy if a dominant of clinically suspicious mass is present. 2. Approximately 10% to 15% of breast cancers are not detected by mammography. 3. Adenosis and dense breasts may obscure an underlying neoplasm.
== END 2018-09-15 11:32 | disposition home or self-care (01) ==
LOC: BICMAMMO 11:31
PROVIDERS: ATTEND Internal Medicine
DX: Z12.31 Encounter for screening mammogram for malignant neoplasm of breast (principal); M81.0 Age-related osteoporosis without current pathological fracture; R06.02 Shortness of breath; M85.869 Other specified disorders of bone density and structure, unspecified lower leg
CPT/HCPCS: 71046; 77063; 77067; 77080

== ENCOUNTER 2019-02-16 09:51 | Emergency (ER) | payer MEDICARE, BC ==
--- NOTE | 2019-02-16 10:29 | RAD ---
EXAM: 3 views of the right shoulder HISTORY: Shoulder pain COMPARISON: None FINDINGS: There is a fracture of the midportion of the right clavicle. Irregularity along the inferio r aspect of the glenoid may represent degenerative change.. No soft tissue swelling is seen. The visualized thorax is unremarkable. IMPRESSION: Right clavicle fracture
[2019-02-16] MEDS ORDERED: HYDROcodone/Acetaminophen 5/325 mg Tablet ONE (10:47)
== END 2019-02-16 11:22 | disposition home or self-care (01) ==
LOC: ERS 09:51
DX: S42.021A Displaced fracture of shaft of right clavicle, initial encounter for closed fracture (principal); E03.9 Hypothyroidism, unspecified; K21.9 Gastro-esophageal reflux disease without esophagitis; F32.9 Major depressive disorder, single episode, unspecified; W01.0XXA Fall on same level from slipping, tripping and stumbling without subsequent striking against object, initial encounter

== ENCOUNTER 2019-06-07 01:12 | Inpatient (IN) | payer MEDICARE, BC ==
[2019-06-07 01:36] LABS: #Lymphocytes 0.9 thou/uL (1.20-3.40); #Monocytes 0.6 thou/uL (0.11-0.59); #Neutrophils 7.6 thou/uL (1.40-6.50); %Basophils 0.1 % (0.0-1.0); %Eosinophils 0.4 % (0.0-10.0); %Lymphocytes 9.4 % (21.0-51.0); %Monocytes 6.9 % (0.0-10.0); %Neutrophils 83.2 % (42.0-75.0); Hemoglobin 13.2 g/dL (12.0-16.0); Mean Corpuscular HGB CONC 32.7 g/dL (32.0-36.0); Mean Corpuscular Hemoglobin 28.2 pg (27.0-31.0); Mean Corpuscular Volume 86.1 fL (78.0-98.0); Mean Platelet Volume 6.8 fL (7.4-10.4); Platelet Count 155 thou/uL (130-400); RBC Distribution Width 14.3 % (11.5-14.5); White Blood Cell (WBC) Count 9.2 thou/uL (4.8-10.8)
[2019-06-07] MEDS ORDERED: Morphine 4 MG/ML VIAL ONE (01:45)
[2019-06-07] MEDS ORDERED: Ondansetron PF 4 MG/2 ML Vial ONE ×2 (01:45→12:39)
[2019-06-07 01:48] LABS: INR-International Normal Ratio 1.2; Prothrombin Time 14.9 SEC (12.0-14.7)
[2019-06-07 01:57] LABS: ALT (SGPT) 11 U/L (8-55); AST (SGOT) 23 U/L (5-34); Albumin 4.1 g/dL (3.4-4.8); Alkaline Phosphatase 90 U/L (40-110); Anion Gap 12 mmol/L (10-20); BUN (Urea Nitrogen) 19 mg/dL (9.8-20.1); Calc. Creatinine Clearance 0 mL/min (70-130); Calcium 9.3 mg/dL (7.8-10.44); Carbon Dioxide 29 mmol/L (23-31); Chloride 102 mmol/L (98-107); Estimated GFR-MDRD 62; Glucose 126 mg/dL (83-110); Protein, Total 6.1 g/dL (6.0-8.3); Sodium 139 mmol/L (136-145)
--- NOTE | 2019-06-07 02:47 | HP ---
This is Ghassan Uriarte PA-C dictating a report for Willis Peterson MD. REQUESTING PHYSICIAN: Dr. Rosa. ATTENDING SURGEON: Dr. Peterson. CONSULTATIONS: Orthopedics, Dr. Lake. HISTORY OF PRESENT ILLNESS: The patient is a 78-year-old woman who was walking in her house today. She has toe fractures of her right foot and she wears an orthopedic boot for this and she stepped on some loose papers on the floor and slipped and fell on her right hip. She states that she hit her head, but did not have a loss of consciousness. She was taken by ground EMS originally to [facility], where she underwent evaluation and examination and was noted to have a right femoral neck fracture. Per the patient's request, she was transferred to our facility to be evaluated by Dr. Lake, who had repaired her left hip fracture in 2018. ALLERGIES: NONE. CURRENT MEDICATIONS: Ysun-pmv-ouognts vitamins, estradiol, omeprazole, calcium citrate, vitamin D, Synthroid, bupropion. PAST MEDICAL HISTORY: Hypothyroidism, depression, gastroesophageal reflux disease, osteoporosis. PAST SURGICAL HISTORY: Sinus surgery due to a CSF leak, closed reduction and percutaneous pinning of left hip fracture. SOCIAL HISTORY: The patient lives independently at home. She denies drug or tobacco use and drinks socially every week. 10-point review of systems is negative as otherwise stated. PHYSICAL EXAMINATION: VITAL SIGNS: Blood pressure 145/90, heart rate 93, respirations 18, oxygen saturation 98% on room air, and temperature is 97.6. GENERAL: The patient is resting comfortably in bed. She is awake, alert, and oriented x3. Adrienne Coma Scale is 15. HEENT: Head is normocephalic atraumatic. Eyes, extraocular motion intact. PERRLA bilaterally. Ears are atraumatic without discharge. Nose is atraumatic without discharge. Oropharynx is clear. NECK: Nontender. Trachea is midline. No JVD. CHEST: Clear to auscultation with good inspiratory and expiratory effort. HEART: Regular rate and rhythm. ABDOMEN: Soft, flat, nontender with active bowel sounds. PELVIS: Stable with tenderness to palpation to right hip consistent with her fracture. EXTREMITIES: Neurovascularly intact x4. BACK: By report is atraumatic and nontender. LABORATORY FINDINGS: WBC 9.2, hemoglobin 13.2, hematocrit 40.5, platelets 155. Sodium 139, potassium 4.0, chloride 102, CO2 of 29, BUN 19, creatinine 0.88, glucose 126. LFTs are unremarkable. PT 15, INR 1.2, and PTT 33. Radiographic reports from the [facility], CT of the brain without contrast shows no intracranial abnormality. CT of the C-spine shows no acute findings, but multiple degenerative changes within the C-spine. Views of the right hip show a femoral neck fracture. ASSESSMENT: 1. Status post ground level fall. 2. Right femoral neck fracture. 3. Acute pain secondary to trauma. 4. History of hypothyroidism, gastroesophageal reflux disease, osteoporosis, and depression. PLAN: Plan will be to keep the patient n.p.o., pain control, pulmonary toilet, gastritis and mechanical VTE prophylaxis. The patient will likely undergo surgical repair for hip fracture tomorrow. Dr. Lake was made aware of the patient. The evaluation, examination, laboratory, and radiographic findings will be discussed with Dr. Peterson after this dictation. Job ID: [id number]
[2019-06-07] MEDS ORDERED: Ondansetron PF 4 MG/2 ML Vial IVP PRN (04:03)
[2019-06-07] MEDS ORDERED: Dextrose 5% in Water 1,000 ML IV PRN (04:03)
[2019-06-07] MEDS ORDERED: Ondansetron ODT 4 MG TAB PO PRN (04:03)
[2019-06-07] MEDS ORDERED: hydrALAZINE 20 MG/ML VIAL SLOW IVP PRN (04:03)
[2019-06-07] MEDS ORDERED: Dextrose 50% Abboject 50 ML SYRINGE SLOW IVP PRN (04:03)
[2019-06-07] MEDS: Sodium Chloride 0.9% 1,000 ML IV SCH ×2 (04:14→15:59)
[2019-06-07] MEDS: Morphine 2 MG/ML SYRINGE SLOW IVP PRN ×4 (04:14→18:08)
[2019-06-07 04:36] VITALS: BMI 22.4
[2019-06-07] MEDS ORDERED: Ketorolac Tromethamine 30 MG/ML VIAL IVP SCH ×2 (06:00→12:00)
[2019-06-07] MEDS ORDERED: Senokot S 8.6-50 MG TAB PO PRN (06:30)
[2019-06-07] MEDS ORDERED: CEFAZOLIN 2 GM in Premix Bag 1 BAG IVPB SCH (07:00)
--- NOTE | 2019-06-07 07:56 | CON ---
DATE OF CONSULTATION: 06/07/2019 This is Susan Foster PA-C dictating a report for Chilo Lake MD. REQUESTING PHYSICIAN: Trauma Service. CONSULTING PHYSICIAN: Dr. Chilo Lake. REASON FOR CONSULTATION: Right hip fracture. HISTORY OF PRESENT ILLNESS: This is a 78-year-old female, who is well known to our service. She states that she was walking in her house. She has toe fractures on her right foot and wears a postoperative shoe on this foot. She stepped on some loose papers on the floor and slipped and fell landing on her right hip. She was brought by ground EMS to [facility], where she was worked up and found to have a right displaced femoral neck fracture. At that time, she requested to be transferred to our facility due to a preexisting relationship with our service. We performed a surgery on her contralateral hip in 2018. Currently at bedside, the patient reports right hip discomfort. She also reports a current right toe fracture, which was reduced by a classroom coordinator in his office. She states she has been wearing a postoperative shoe for this. Otherwise, she denies any head injury or loss of consciousness. She denies any other extremity pain. PAST MEDICAL HISTORY: Significant for hypothyroidism, depression, gastroesophageal reflux disease, osteoporosis. PAST SURGICAL HISTORY: Sinus surgery due to a CSF leak, closed reduction, percutaneous pinning of left hip fracture. SOCIAL HISTORY: The patient lives independently at home. She ambulates without the use of any assistive aid. She denies any drug or tobacco use. She drinks socially every week. ALLERGIES: NONE. REVIEW OF SYSTEMS: Ten-point review of systems is conducted and otherwise negative except for stated above. PHYSICAL EXAMINATION: VITAL SIGNS: Temperature of 97.9, pulse of 96, respiratory rate of 18, blood pressure of 151/89, and O2 saturation of 97 on room air. GENERAL: The patient is awake and alert. She is in no apparent distress. She is lying supine in bed and is pleasant and cooperative with exam today. There is currently no family at bedside. HEENT: Head is normocephalic and atraumatic. NECK: Supple. Trachea midline. HEART: Regular rate and rhythm. RESPIRATORY: Clear to auscultation bilaterally. EXTREMITIES: The right lower extremity is noted to be shortened and externally rotated. Skin is intact overlying the hip. She is able to move her foot and ankle distally. Distal neurovascular status is intact. She moves all other extremities without any difficulty and no deformities are noted. DIAGNOSTIC STUDIES: Radiographic imaging from [facility] reveals a displaced right femoral neck fracture. LABORATORY DATA: Shows a CBC within normal limits. Coagulation panel is also within normal limits. ASSESSMENT: Displaced right femoral neck fracture. PLAN: At this time, we plan to proceed with surgical intervention including a right hip hemiarthroplasty in order to restore function and promote mobility. Risks, benefits, and alternatives were discussed at length with the patient today. She verbalized understanding and is amenable to the plan of care. We will plan to proceed with surgery later this afternoon. She is n.p.o. She is admitted to the Trauma Services. Postoperatively, she will work with Physical Therapy. We will also obtain x-rays of her foot while she is here. Job ID: [id number]
--- NOTE | 2019-06-07 08:24 | RAD ---
Radiograph right foot 2 views: DATE: 06/07/2019 HISTORY: 78-year-old female with "total fracture" COMPARISON: None FINDINGS: There is a fracture at the proximal metaphysis of the fourth proximal phalanx with at least minimal d isplacement. It is visualized on the AP view. It is not visible on the lateral view because of overlap with the other toes. No dislocation. No other fracture identified. No high-grade DJD. IMPRESSION: 1. At least mildly displaced fracture at proximal metaphysis of proximal phalanx of right fourth toe. 2. In general, for evaluation of the toes, dedicated three-view radiograph of the toes is recommended rather than whole foot radiograph.
[2019-06-07] MEDS ORDERED: Prevnar 13-Val Conj/PF 0.5 ML SYRINGE IM ONE (09:00)
[2019-06-07] MEDS ORDERED: FLU VACC TS2019-20(65YR UP)/PF 180 MCG/0.5 ML SYRINGE IM ONE (09:00)
[2019-06-07] MEDS ORDERED: Non-Formulary Item 1 EACH (Bupropion Hcl [Wellbutrin Xl] 300 MG) PO SCH (09:00)
[2019-06-07] MEDS ORDERED: Famotidine 20 MG TAB PO SCH (09:00)
[2019-06-07] MEDS ORDERED: Non-Formulary Item 1 EACH (Glucos Sul 2kcl/Msm/Chond/C/Mn [Glucosamine Chondroitin Cap] 1 PO SCH (09:00)
[2019-06-07] MEDS ORDERED: Glucosamine Chondroitin Cap PO SCH (09:00)
[2019-06-07] MEDS ORDERED: Non-Formulary Item 1 EACH (Multivit-Min/Fa/Lycopen/Lutein [Centrum Silver Tablet] 1 TAB) PO SCH (09:00)
[2019-06-07] MEDS ORDERED: Non-Formulary Item 1 EACH (Omeprazole [Omeprazole] 20 MG) PO SCH (09:00)
[2019-06-07] MEDS ORDERED: Levothyroxine Sodium 75 MCG TAB PO SCH (09:00)
[2019-06-07] MEDS: Bupropion 150 MG XL TAB PO SCH (09:25)
[2019-06-07] MEDS: Multivitamin W/ Minerals 1 TAB PO SCH (09:26)
--- NOTE | 2019-06-07 09:28 | RAD ---
RIGHT HIP TWO VIEWS: HISTORY: Hip fracture. COMPARISON: None. FINDINGS: There is a mid cervical right femoral neck fracture with lateral displacement of the femur approximat kaylin 1.5 cm. Limited evaluation of the obturator ring is intact. IMPRESSION: Right femoral neck fracture, as described. POS: TPC
[2019-06-07] MEDS: Polyethylene Glycol 3350 17 GM Packet PO SCH (09:38)
[2019-06-07] MEDS ORDERED: Acetaminophen 500 MG TAB PO PRN (09:40)
[2019-06-07] MEDS ORDERED: Fentanyl 100 MCG/2 ML VIAL ONE ×3 (12:11→14:42)
[2019-06-07] MEDS ORDERED: Phenylephrine HCL 10 MG/ML VIAL ONE (12:12)
[2019-06-07] MEDS ORDERED: Morphine 2 MG/ML SYRINGE ONE (12:33)
[2019-06-07] MEDS ORDERED: Lidocaine 1% PF 5 ML VIAL ONE (12:39)
[2019-06-07] MEDS ORDERED: PHENYLEPHRINE-NS 100 MCG/ML 10 ML SYRINGE ONE (12:39)
[2019-06-07] MEDS ORDERED: PROPOFOL 200 MG/20 ML VIAL ONE (12:39)
[2019-06-07] MEDS ORDERED: Rocuronium Bromide 10 MG/ML (10ML VIAL) ONE (12:39)
[2019-06-07] MEDS ORDERED: Glycopyrrolate 0.2 MG/ML 5 ML SYRINGE ONE (12:39)
[2019-06-07] MEDS ORDERED: Promethazine HCl 25 MG/ML VIAL SLOW IVP PRN (13:24)
[2019-06-07] MEDS ORDERED: Promethazine HCl 25 MG/ML VIAL IM PRN (13:24)
[2019-06-07] MEDS ORDERED: Ondansetron HCl/PF 4 MG/2 ML Vial IVP PRN (13:24)
--- NOTE | 2019-06-07 14:24 | PRG ---
DATE OF SERVICE: SUBJECTIVE: Ms. Paula is a 78-year-old female, status post ground level fall. She sustained right hip fracture. She also has a history of left hip fracture and hypothyroid, reflux, depression. The patient was admitted to [place] [id number] for pain control. The patient was seen by orthopedic team and the patient will have plan to go to OR today for right hip fracture fixation. The patient reports pain is well controlled. She developed no fever or shortness of breath. Otherwise, she voiced no concern. OBJECTIVE: GENERAL: The patient is lying in bed comfortable with no acute respiratory distress. VITAL SIGNS: Temperature 98, heart rate 99, respiratory rate 16, O2 saturation 96% on room air, and blood pressure 102/62. LUNGS: Clear bilaterally. HEART: Regular rate and rhythm. ABDOMEN: Soft and nondistended. EXTREMITIES: Neurovascularly intact x4. NEUROLOGIC: No focal neurology deficits. ASSESSMENT: 1. Status post ground level fall. 2. Right hip fracture. 3. History of left hip fracture fixation, hypothyroid, depression, and reflux. PLAN: Continue supportive care. Continue pain control. The patient is on n.p.o. The patient plan to go to the OR today with Orthopedics for right hip fracture fixation. Postoperation, the patient will be working with PT and OT, anticipate placement in rehabilitation facility. The patient will have pharmacological DVT prophylaxis start tomorrow. The patient was seen and evaluated with Dr. Kearney on round this morning. Job ID: [id number]
--- NOTE | 2019-06-07 14:55 | RAD ---
RIGHT HIP TWO VIEWS: HISTORY: Joint replacement. FINDINGS: Metallic prosthesis is in place. No perihardware lucency. Soft tissue gas and skin tram. IMPRESSION: Right hip prosthesis is in good radiographic position. POS: TPC
--- NOTE | 2019-06-07 14:56 | RAD ---
AP PELVIS ONE VIEW: HISTORY: Joint replacement. COMPARISON: 03/23/2018 FINDINGS: Right hip prosthesis in place without perihardware lucency. Soft tissue gas and skin tram visualiz ed. Three long lag screws transfix the left femoral neck. Alignment is anatomic. The patient is sligh tly rotated leftward. The sacral ala and pelvic rings appear intact. There are degenerative changes o f the lower lumbar spine. IMPRESSION: Right hip prosthesis is in good radiographic position. POS: TPC
--- NOTE | 2019-06-07 14:58 | RAD ---
LEFT LOWER LEG TWO VIEWS: HISTORY: Injury. FINDINGS: The tibia and fibula are intact. No acute fracture, dislocation or aggressive osseous erosions. Projecting over the lateral soft tissues, at the level of the mid to distal fibular shaft is an area of soft tissue prominence with subtle internal increased density. Minimal irregular density projectin g over this soft tissue abnormality may reflect very small calcification, although it is only seen on one view. No erosion of the underlying bone. IMPRESSION: Soft tissue prominence and increased density at the lateral aspect of the lower leg. No internal gas or affect upon the underlying bone. Cause is not evident. POS: TPC
--- NOTE | 2019-06-07 17:22 | OP ---
DATE OF PROCEDURE: 06/07/2019 PREOPERATIVE DIAGNOSIS: Right femoral neck fracture, displaced. POSTOPERATIVE DIAGNOSIS: Right femoral neck fracture, displaced. PROCEDURE PERFORMED: Right hip hemiarthroplasty. ANESTHESIA: General. 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 ESTIMATED BLOOD LOSS: 250 mL. IMPLANTS: [employer] Armsuy system was used with a size 4 [place] stem, a 28 x 48 bipolar cup and a +5 5 Articul/whit head. COMPLICATIONS: None. DRAINS: None. SPECIMEN: Explanted femoral neck discarded. OUTCOME: Satisfactory. INDICATIONS FOR PROCEDURE: The patient is a 78-year-old lady, status post ground level fall sustaining a right displaced femoral neck fracture. Of note, the patient is now a year status post left minimally displaced femoral neck fracture treated with cannulated screws. Today, I have had a discussion with the patient given the displacement of this fracture, I would recommend hemiarthroplasty for this hip. Informed consent has been obtained. I believe all questions have been answered. DESCRIPTION OF PROCEDURE: The patient was brought to the operating room and general anesthesia induced and the patient was positioned in the left lateral decubitus position. Next, a sterile prep and drape was performed of the right lower extremity. A curvilinear incision was made centered over the greater trochanter. After skin was sharply incised, dissection was carried down through the subcutaneous fat, exposing the fascia of the tensor fascia and fascia carlos. This structure was incised in line with the skin incision and reflected anteriorly and posteriorly and held in place with a Charnley retractor. The trochanteric bursa was swept off the short external rotators and then an elevator was passed over the top of the piriformis, but under the abductors down to the level of the hip capsule. A Cobra retractor was then placed in this interval and then the piriformis, superior and inferior gemelli, and obturator internus were released off the posterior aspect of the proximal femur. These were tagged with #1 Vicryl suture and reflected posteriorly. Next, a T-capsulotomy was performed with the corners of the capsule leaflets tagged for eventual repair. At this point, the femoral head was removed without difficulty and sized to a size 48. An oscillating saw was then used to make a femoral neck cut and then the proximal femur further prepared using the starting awl followed by lateralizing reamer and then progressive T-handle awls up to a size 4, which gave good cortical fit in the proximal diaphysis. Next, broaching was started at size 2 and continued up to size 4. The size 4 broach was left in place and then a reduction with a +5 femoral head was performed that showed good stability with near normalization of the leg lengths. As such, all trial components were removed from the thigh and then, Pulsavac was used to irrigate the acetabulum as well as proximal femur. Next, the final size 4 stem was placed in the proximal femur followed by application of the bipolar head to the stem. The hip was reduced and again found to have excellent stability. The wound closure was then performed with #1 Vicryl for the capsule, followed by #1 Vicryl to reattach the short external rotators. #1 Vicryl also used for the fascia carlos and tensor fascia followed by 0 Vicryl for Orly fascia, 2-0 Vicryl subcutaneously and then tram for the skin. Xeroform gauze and tape dressing was applied to the lateral thigh and the patient was transferred to recovery room in stable condition. There were no complications. The patient tolerated the procedure well. Job ID: [id number]
[2019-06-07] MEDS ORDERED: Ibuprofen 200 MG TAB PO PRN (18:41)
[2019-06-07] MEDS: Gabapentin 300 MG CAP PO SCH (20:17)
[2019-06-07] MEDS: Acetaminophen 500 MG TAB PO SCH (20:17)
[2019-06-07] MEDS: traMADol HCl 50 MG TAB PO PRN (20:17)
[2019-06-07] MEDS: medroxyPROGESTERone Acetate 2.5 MG TAB PO SCH (21:59)
[2019-06-07] MEDS: CEFAZOLIN 2 GM in Premix Bag 1 BAG IVPB SCH (22:00)
--- NOTE | 2019-06-08 00:03 | PRG ---
DATE OF SERVICE: 06/07/2019 SUBJECTIVE: The patient is hospital day #2, postop day #0 from a ground level fall in which she sustained a right femoral neck fracture. Today, she underwent right hip hemiarthroplasty, which she tolerated well with the exception of some postoperative nausea and an episode of vomiting. OBJECTIVE: VITAL SIGNS: Stable. The patient is afebrile. GENERAL: The patient is resting comfortably in bed. She states that she is still having some nausea and during my exam the nurse was giving her some Zofran. Her pain is partially controlled and we will make adjustments to that. Otherwise, she is awake, alert, and oriented x3. [place] Coma Scale is 15. HEENT: Unremarkable. LUNGS: Clear to auscultation bilaterally. HEART: Regular rate and rhythm. ABDOMEN: Soft, nontender with hyperactive bowel sounds. EXTREMITIES: Neurovascularly intact x4. Postop dressing is clean, dry, intact. ASSESSMENT/PLAN: 1. Status post ground level fall. 2. Status post right hip hemiarthroplasty to treat right femoral neck fracture. 3. Postoperative nausea and vomiting, improved. PLAN: Plan will be to continue supportive care. Adjust her pain medications. Continue to have her diet as tolerated and tomorrow likely begin physical and occupational therapy and begin chemical VTE prophylaxis. We will also discuss placement tomorrow too. Job ID: [id number]
[2019-06-08] MEDS: Acetaminophen 500 MG TAB PO SCH ×4 (01:16→21:12)
[2019-06-08] MEDS: traMADol HCl 50 MG TAB PO PRN ×3 (02:18→17:57)
[2019-06-08] MEDS: Levothyroxine 150 MCG TAB PO SCH (05:20)
[2019-06-08] MEDS: CEFAZOLIN 2 GM in Premix Bag 1 BAG IVPB SCH ×2 (05:21→13:53)
[2019-06-08 05:23] LABS: #Eosinphils 0.2 thou/uL (0.0-0.7); #Monocytes 0.5 thou/uL (0.11-0.59); #Neutrophils 5.8 thou/uL (1.40-6.50); %Basophils 0.2 % (0.0-1.0); %Eosinophils 3.1 % (0.0-10.0); %Lymphocytes 13.5 % (21.0-51.0); %Monocytes 7.1 % (0.0-10.0); %Neutrophils 76.1 % (42.0-75.0); Hemoglobin 11.7 g/dL (12.0-16.0); Mean Corpuscular HGB CONC 32.2 g/dL (32.0-36.0); Mean Corpuscular Hemoglobin 28.1 pg (27.0-31.0); Mean Corpuscular Volume 87.3 fL (78.0-98.0); Mean Platelet Volume 7.2 fL (7.4-10.4); Platelet Count 123 thou/uL (130-400); RBC Distribution Width 14.3 % (11.5-14.5); Red Blood Cell (RBC) Count 4.15 mill/uL (4.20-5.40); White Blood Cell (WBC) Count 7.6 thou/uL (4.8-10.8)
[2019-06-08] MEDS: Ibuprofen 200 MG TAB PO PRN ×2 (05:32→13:50)
[2019-06-08 05:42] LABS: ALT (SGPT) 8 U/L (8-55); AST (SGOT) 20 U/L (5-34); Albumin 3.3 g/dL (3.4-4.8); Alkaline Phosphatase 77 U/L (40-110); Anion Gap 12 mmol/L (10-20); BUN (Urea Nitrogen) 14 mg/dL (9.8-20.1); Bilirubin, Total 1.6 mg/dL (0.2-1.2); Calc. Creatinine Clearance 56 mL/min (70-130); Calcium 8.3 mg/dL (7.8-10.44); Carbon Dioxide 23 mmol/L (23-31); Chloride 102 mmol/L (98-107); Estimated GFR-MDRD 69; Globulin 1.8 g/dL (2.4-3.5); Glucose 97 mg/dL (83-110); Potassium 4.1 mmol/L (3.5-5.1); Protein, Total 5.1 g/dL (6.0-8.3); Sodium 133 mmol/L (136-145)
[2019-06-08] MEDS ORDERED: Hydrocortisone Sod Succ/PF 100 mg/2 ml Vial IVP SCH ×2 (07:30→08:00)
[2019-06-08] MEDS ORDERED: Hydrocortisone Sod Succ/PF 100 mg/2 ml Vial IVP ONE (08:30)
[2019-06-08] MEDS: Polyethylene Glycol 3350 17 GM Packet PO SCH (08:36)
[2019-06-08] MEDS: Bupropion 150 MG XL TAB PO SCH (08:38)
[2019-06-08] MEDS: Multivitamin W/ Minerals 1 TAB PO SCH (08:39)
[2019-06-08] MEDS: Gabapentin 300 MG CAP PO SCH ×2 (08:39→21:12)
--- NOTE | 2019-06-08 12:00 | PRG ---
DATE OF SERVICE: 06/08/2019 SUBJECTIVE: Ms. Paula is a 78-year-old female, status post ground level fall. She sustained right hip fracture. She underwent ORIF of right hip fracture, postop day #1 today. The patient tolerated with surgery course well. Postop, the patient has been doing good. Pain is well controlled, not yet working with PT/OT. She tolerated with her regular diet. Her vital signs are stable. OBJECTIVE: GENERAL: The patient lying in bed comfortable with no acute respiratory distress. VITAL SIGNS: Temperature 99.2, heart rate 100, O2 saturation is 97% on 1 L nasal cannula, respiratory rate 20, and blood pressure 99/62. LUNGS: Clear bilaterally. HEART: Regular rate and rhythm. ABDOMEN: Soft and nondistended. EXTREMITIES: Neurovascularly intact x4. Postop dressing clean, dry, and intact. NEUROLOGY: No focal neurology deficits. LABORATORY DATA: Laboratory shows hemoglobin 11.7. Sodium 133, potassium is 4.1, creatinine 0.8, and cortisol level is 8.7. ASSESSMENT: 1. Status post ground level fall. 2. Right hip fracture, status post open reduction and internal fixation of right hip fracture. 3. Adrenal insufficiency. 4. History of left hip fracture fixation, hypothyroid, depression, and reflux. PLAN: The patient will have hydrocortisone for adrenal insufficiency, will be working with PT/OT today. Continue supportive care. We will initiate pharmacological DVT prophylaxis. Placement in rehabilitation facility. Job ID: [id number]
[2019-06-08] MEDS: Hydrocortisone Sod Succ/PF 100 mg/2 ml Vial IVP SCH ×2 (12:33→17:57)
[2019-06-08] MEDS ORDERED: Enoxaparin Sodium 40 MG/0.4 ML SYRINGE SC SCH (21:00)
[2019-06-08] MEDS: medroxyPROGESTERone Acetate 2.5 MG TAB PO SCH (21:12)
[2019-06-08 21:39] LABS: Bacteria/HPF None Seen HPF (None Seen); Bilirubin Negative (Negative); Blood, Urine Negative (Negative); Clarity Clear (Clear); Glucose, Urine (Dipstick) Normal (Negative); Leukocyte Negative Leu/uL (Negative); Nitrite Negative (Negative); Protein, Urine (Dipstick) Negative (Neg-Trace); RBC/HPF 0-3 HPF (0-3); Squamous Epithelial 0-3 HPF (0-3); Urobilinogen Normal mg/dL (Less than 2); WBC/HPF None Seen HPF (0-3)
[2019-06-08 21:40] LABS: Urine Culture Reflex No No
[2019-06-09] MEDS: Acetaminophen 500 MG TAB PO SCH ×2 (00:59→10:19)
[2019-06-09] MEDS: traMADol HCl 50 MG TAB PO PRN ×3 (00:59→12:49)
[2019-06-09] MEDS: Hydrocortisone Sod Succ/PF 100 mg/2 ml Vial IVP SCH ×2 (01:01→05:58)
--- NOTE | 2019-06-09 01:13 | PRG ---
DATE OF SERVICE: SUBJECTIVE: The patient remains on the surgical floor. She is status post ground level fall which she sustained a right hip fracture. She underwent right hip hemiarthroplasty which she tolerated well. Today, she was working with Physical and Occupational Therapy. She is tolerating a diet. Her pain is controlled. She is currently awaiting placement likely to rehab. PHYSICAL EXAMINATION: VITAL SIGNS: Stable. GENERAL: The patient is resting comfortably in bed. She is awake, alert, and oriented x3. [place] Coma Scale is 15. LUNGS: Clear to auscultation with good inspiratory and expiratory effort. HEART: Regular rate and rhythm. ABDOMEN: Soft, flat, nontender with active bowel sounds. EXTREMITIES: Neurovascularly intact x4. Postop dressing is clean, dry, and intact. ASSESSMENT AND PLAN: 1. Status post ground level fall. 2. Status post right hip hemiarthroplasty to treat right femoral neck fracture. 3. Adrenal insufficiency, treated with hydrocortisone. Plan will be to continue supportive care to include her hydrocortisone, encourage physical and occupational therapy, and await placement decision. The patient was also started on Lovenox today. Job ID: [id number]
[2019-06-09 04:14] VITALS: TEMP 97.7
[2019-06-09] MEDS: Levothyroxine 150 MCG TAB PO SCH (05:58)
[2019-06-09 08:41] VITALS: BP 108/71
[2019-06-09] MEDS: Bupropion 150 MG XL TAB PO SCH (10:19)
[2019-06-09] MEDS: Multivitamin W/ Minerals 1 TAB PO SCH (10:19)
[2019-06-09] MEDS: Polyethylene Glycol 3350 17 GM Packet PO SCH (10:19)
[2019-06-09] MEDS: Gabapentin 300 MG CAP PO SCH (10:20)
== END 2019-06-09 13:10 | DRG 470 ==
LOC: ERS 01:12 → SURG B 03:55
PROVIDERS: ADMIT Specialist; ATTEND Specialist
PROC: 0SRR0JZ Replacement of Right Hip Joint, Femoral Surface with Synthetic Substitute, Open Approach (ICD-10-PCS; principal; 2019-06-07)
DX: S72.001A Fracture of unspecified part of neck of right femur, initial encounter for closed fracture (principal); E27.40 Unspecified adrenocortical insufficiency; E03.9 Hypothyroidism, unspecified; K21.9 Gastro-esophageal reflux disease without esophagitis; M81.0 Age-related osteoporosis without current pathological fracture; W01.0XXA Fall on same level from slipping, tripping and stumbling without subsequent striking against object, initial encounter; Y93.89 Activity, other specified; Y92.098 Other place in other non-institutional residence as the place of occurrence of the external cause
CPT/HCPCS: 36415; 72170; 80053; 81001; 82533; 85025; 85610; 85730; 86850; 86900; 86901; 90471; 90662; 96374; 96375; G0008; G0390; J0690; J1650; J1720; J1885; J2001; J2270; J2370; J2405; J2704; J3010

== ENCOUNTER 2019-06-10 08:55 | Observation (INO) | payer MEDICARE, BC ==
[2019-06-10] MEDS ORDERED: Adenosine 6 MG/2 ML VIAL ONE ×4 (09:13→09:19)
[2019-06-10] MEDS ORDERED: Diltiazem 125 MG/25 ML ONE (09:18)
[2019-06-10 09:29] LABS: #Eosinphils 0.3 thou/uL (0.0-0.7); #Monocytes 0.7 thou/uL (0.11-0.59); #Neutrophils 4.3 thou/uL (1.40-6.50); %Basophils 0.5 % (0.0-1.0); %Eosinophils 5.4 % (0.0-10.0); %Lymphocytes 15.7 % (21.0-51.0); %Monocytes 10.9 % (0.0-10.0); %Neutrophils 67.5 % (42.0-75.0); Hemoglobin 10.8 g/dL (12.0-16.0); Mean Corpuscular HGB CONC 33.1 g/dL (32.0-36.0); Mean Corpuscular Hemoglobin 29.1 pg (27.0-31.0); Platelet Count 149 thou/uL (130-400); RBC Distribution Width 14.5 % (11.5-14.5); Red Blood Cell (RBC) Count 3.71 mill/uL (4.20-5.40); White Blood Cell (WBC) Count 6.3 thou/uL (4.8-10.8)
[2019-06-10] MEDS ORDERED: Diltiazem 125 MG in Sodium Chloride 0.9% 100 ML IVPB SCH (09:45)
--- NOTE | 2019-06-10 09:48 | RAD ---
Portable chest: HISTORY: Shortness of breath COMPARISON: 09/15/2018 FINDINGS:Evidence of patchy infiltrate in the right infrahilar region. Lung rossi otherwise appear clear and unchanged. Heart and mediastinum appear stable. IMPRESSION:Question patchy infiltrate in the right infrahilar region
[2019-06-10 09:56] LABS: ALT (SGPT) 7 U/L (8-55); AST (SGOT) 14 U/L (5-34); Albumin 3.3 g/dL (3.4-4.8); Alkaline Phosphatase 78 U/L (40-110); Anion Gap 12 mmol/L (10-20); BUN (Urea Nitrogen) 15 mg/dL (9.8-20.1); Bilirubin, Total 0.8 mg/dL (0.2-1.2); Calc. Creatinine Clearance 0 mL/min (70-130); Calcium 8.8 mg/dL (7.8-10.44); Carbon Dioxide 27 mmol/L (23-31); Chloride 99 mmol/L (98-107); Estimated GFR-MDRD 65; Globulin 2.1 g/dL (2.4-3.5); Glucose 217 mg/dL (83-110); Potassium 3.8 mmol/L (3.5-5.1); Protein, Total 5.4 g/dL (6.0-8.3); Sodium 134 mmol/L (136-145)
--- NOTE | 2019-06-10 10:52 | CT ---
EXAM: CTA of the chest HISTORY: Tachycardia with nausea and dizziness; hypotension COMPARISON: None TECHNIQUE: Multiple contiguous axial images were obtained a CTA of the chest with contrast per pulmon jenny embolism protocol. 3-D oblique MIP reformats and direct coronal reformats were performed. FINDINGS: HEART: Normal in size without focal cardiac abnormality. PULMONARY ARTERIES: Normal in caliber without filling defects to suggest pulmonary emboli. MEDIASTINUM: Scattered soft tissue fullness throughout the mediastinum is nonspecific but could repre sent a conglomerate of lymph nodes measuring up to 2.0 cm in size. LUNGS: No focal infiltrates or masses. PLEURAL SPACE: No pleural effusion or pneumothorax. CHEST WALL SOFT TISSUES: Unremarkable VISUALIZED OSSEOUS STRUCTURES: Degenerative changes in the spine. There is a comminuted right clavicl e fracture with surrounding callus. VISUALIZED SUBDIAPHRAGMATIC STRUCTURES: Unremarkable IMPRESSION: 1. No evidence of pulmonary thromboembolism 2. Possible mediastinal adenopathy. 3. Right clavicle fracture
[2019-06-10] MEDS ORDERED: Iopamidol-370 76% 500 ML 1 ML ONE (11:03)
[2019-06-10] MEDS ORDERED: Morphine 4 MG/ML VIAL ONE (12:30)
[2019-06-10 13:17] LABS: Troponin I 0.013 ng/mL (< 0.028)
[2019-06-10] MEDS ORDERED: Acetaminophen 325 MG TAB PO PRN (13:53)
[2019-06-10] MEDS ORDERED: hydrALAZINE 20 MG/ML VIAL SLOW IVP PRN (14:14)
--- NOTE | 2019-06-10 15:06 | HP ---
PRIMARY CARE PROVIDER: Corinna Hinton MD at [facility]. CHIEF COMPLAINT: Palpitations. HISTORY OF PRESENT ILLNESS: Ms. Paula is a pleasant 78-year-old lady, who was seen at [facility] on June 10, 2019. She was hospitalized at this facility from June 07 to June 09, 2019. The admission was for fall. She underwent right hip hemiarthroplasty to treat right femoral neck fracture. She was subsequently discharged to [facility]. She was discharged to rehab facility yesterday. Today around 6:00 a.m., she received 2 tablets of tramadol prior to therapy at 7:00 a.m. This was followed by onset of palpitations. She called her nurse. She got intravenous diltiazem. Her heart rate improved slightly but continued to be high. She was therefore sent to the emergency room. She denies any chest pain or shortness of breath. She reports lightheadedness. She reports having an episode of tachycardia approximately a year ago. REVIEW OF SYSTEMS: All systems were reviewed and found to be negative except for the pertinent positives mentioned above. PAST MEDICAL HISTORY: Hypothyroidism, gastroesophageal reflux disease, osteoporosis. PAST SURGICAL HISTORY: Sinus surgery, left hip surgery in March 2018 and right hip surgery on June 07, 2019. PSYCHIATRIC HISTORY: Depression. SOCIAL HISTORY: Occasional alcohol use. No tobacco use or recreational drug use. FAMILY HISTORY: No family history of coronary artery disease. ALLERGIES: NO KNOWN DRUG ALLERGIES. CURRENT MEDICATIONS: 1. Centrum Silver 1 tablet daily. 2. Estradiol 0.5 mg daily. 3. Omeprazole 20 mg daily. 4. Calcium citrate plus vitamin D 1 tablet daily. 5. Synthroid 150 mcg daily. 6. Medroxyprogesterone 2.5 mg daily. 7. Bupropion 300 mg daily. 8. Glucosamine chondroitin 1 tablet daily. PHYSICAL EXAMINATION: GENERAL: Ms. Paula is awake and alert, not in acute distress. VITAL SIGNS: Blood pressure is 112/66, pulse 94, respiratory rate 12, and oxygen saturation 98% on room air. She is afebrile. EYES: No scleral icterus. No conjunctival pallor. ENT: Moist mucosal membranes. No oropharyngeal erythema or exudates. NECK: Supple, nontender, trachea is midline. RESPIRATORY: Accessory muscles of breathing are not active. Chest wall movements are symmetric bilaterally. LUNGS: Clear to auscultation without wheeze, rhonchi, or crepitations. CARDIOVASCULAR: S1 and S2 are heard, regular. Peripheral pulses palpable. No carotid bruit. No pericardial rub. ABDOMEN: Soft, nontender, bowel sounds are heard. NEUROLOGIC: Cranial nerves 2 through 12 are intact. MUSCULOSKELETAL: Moving all 4 extremities. SKIN: [place] over the right hip. LYMPHATIC: No cervical lymphadenopathy. PSYCHIATRIC: Normal mood, normal affect. The patient is oriented to person, place, and time. LABORATORY DATA: Ms. Paula's labs and investigations were reviewed. I reviewed her electrocardiograms. At 0917 hours today, electrocardiogram shows supraventricular tachycardia, no ST changes to suggest an acute coronary syndrome. Electrocardiogram at 0925 hours show sinus tachycardia. Electrocardiogram at 0951 hours show normal sinus rhythm. I reviewed her chest x-ray, which shows possible right infrahilar infiltrate. CT angiogram of the chest did not show any evidence of pulmonary thromboembolism. She had possible mediastinal adenopathy and right clavicular fracture. She has normal white count, normocytic anemia with hemoglobin 10.8, normal platelet count, decreased sodium of 134, normal electrolytes, otherwise, normal creatinine and unremarkable LFTs. Troponin I is negative x2. BNP is normal. ASSESSMENT AND PLAN: Ms. Paula is a pleasant 78-year-old lady, who was seen at [facility] on June 10, 2019. Her problem list includes: 1. Supraventricular tachycardia: Ms. Paula is presenting with supraventricular tachycardia. She received adenosine as well as Cardizem in the emergency room and is currently in sinus rhythm. She will be admitted to the hospital for telemetry monitoring. Cardiology Service is being consulted for opinion and help with management. 2. Hyponatremia: Mild, likely asymptomatic. 3. Hypothyroidism: We will continue Synthroid, check TSH. 4. Depression: Mild, stable, continue bupropion. 5. Hip fracture: Consult PT. LEVEL OF RISK: High. LEVEL OF COMPLEXITY: High. Job ID: [id number]
[2019-06-10 16:21] LABS: Troponin I 0.028 ng/mL (< 0.028)
[2019-06-10] MEDS ORDERED: Sodium Chloride 0.9% 1,000 ML IV SCH (17:30)
--- NOTE | 2019-06-10 17:45 | CON ---
DATE OF CONSULTATION: 06/10/2019 PRIMARY CANNONEER: Dr. Vega Michel. REASON FOR CONSULTATION: SVT. HISTORY OF PRESENT ILLNESS: Ms. Paula is a 78-year-old woman who recently fell and broke her hip. She was en route to rehab where she developed SVT. This is the second episode of SVT. She was set up in the past with Dr. Smith for an ablation of an opted conservative therapy. She states during this episode, she had significant tachycardia present. She was short of breath. No chest pain pressure noted. PAST MEDICAL HISTORY: SVT, hypothyroidism, acid reflux. HOME MEDICATIONS: Include; 1. Cardizem. 2. Synthroid. 3. Omeprazole. 4. Wellbutrin. 5. Glucosamine. PAST SURGICAL HISTORY: Recent hemiarthroplasty, previous traumatic brain injury with concussion. ALLERGIES: NONE. SOCIAL HISTORY: No current tobacco or alcohol use. REVIEW OF SYSTEMS: A 10-point review of systems is reviewed and as above, otherwise negative. PHYSICAL EXAMINATION: GENERAL: Patient is a pleasant female who is in no acute distress. The patient appears their stated age. VITAL SIGNS: Blood pressure 92/56, pulse 87, and respirations 20. NEUROLOGIC: The patient is alert and oriented x3 with no focal neurologic deficits. HEENT: Sclerae without icterus. Mouth has moist mucous membranes with normal pallor. NECK: No JVD. Carotid upstroke brisk. No bruits bilaterally. LUNGS: Clear to auscultation with unlabored respirations. BACK: No scoliosis or kyphosis. CARDIAC: Regular rate and rhythm with normal S1 and S2. No S3 or S4 noted. No significant rubs, murmurs, thrills, or gallops noted throughout the precordium. PMI is not displaced. There is no parasternal heave. ABDOMEN: Soft, nontender, nondistended. No peritoneal signs present. No hepatosplenomegaly. No abnormal striae. EXTREMITIES: 2+ femoral and 2+ dorsalis pedis pulses. No cyanosis, clubbing, or edema. SKIN: No gross abnormalities. PERTINENT LABORATORY DATA: Hemoglobin 10.8 and hematocrit 32.6. Creatinine 0.85, albumin 3.3, BNP of 49. TSH 0.62. IMPRESSION: 1. Supraventricular tachycardia. 2. Hypotension. 3. Recent hip fracture. RECOMMENDATIONS: I discussed how to proceed with Ms. Paula. We will give her one dose of diltiazem IV now. She would benefit from ablation given recurrence. She is amenable to proceeding. She would like to think about it over the weekend. We will give her 500 mL bolus of IV fluid. Last echo dated 03/27/2018 with LVEF 55% to 60%. We would repeat her echo. Job ID: [id number]
[2019-06-10] MEDS: Digoxin 0.25 MG TAB PO SCH ×2 (17:55→23:54)
[2019-06-10] MEDS ORDERED: traMADol HCl 50 MG TAB PO PRN (18:06)
[2019-06-10] MEDS: traMADol HCl 50 MG TAB PO PRN ×2 (18:37→23:55)
[2019-06-10] MEDS: medroxyPROGESTERone Acetate 2.5 MG TAB PO SCH (20:44)
[2019-06-10] MEDS: Enoxaparin Sodium 40 MG/0.4 ML SYRINGE SC SCH (20:44)
[2019-06-10] MEDS: Estradiol 1 MG TAB PO SCH (20:56)
[2019-06-11] MEDS: traMADol HCl 50 MG TAB PO PRN ×3 (04:56→23:31)
[2019-06-11] MEDS: Levothyroxine Sodium 75 MCG TAB PO SCH (04:56)
[2019-06-11] MEDS: Digoxin 0.25 MG TAB PO SCH ×2 (04:56→11:30)
[2019-06-11] MEDS: Bupropion 150 MG XL TAB PO SCH (08:38)
[2019-06-11] MEDS: Multivit, Therapeutic 1 TAB PO SCH (08:38)
[2019-06-11] MEDS: Calcium Carbonate + Vit D 1 TAB PO SCH (08:39)
--- NOTE | 2019-06-11 10:24 | PDOC.CPN ---
- Subjective Date: 06/11/19 Time: 10:21 Interval history: No overnight events. Patient has decided to discuss RFA with EP. - Review of Systems General: denies: fever/chills, weight/appetite/sleep changes, night sweats, fatigue Respiratory: denies: cough, congestion, shortness of breath, exercise intolerance Cardiovascular: denies: chest pain, palpitation, edema, paroxysmal nocturnal dyspnea, orthopnea Gastrointestinal: denies: nausea, vomiting, diarrhea, constipation, abd pain, GI bleeding Musculoskeletal: denies: pain, tenderness, stiffness, swelling, arthritis/ arthralgias Neurological: denies: numbness, syncope, seizure, weakness - Objective Allergies/Adverse Reactions: Allergies Allergy/AdvReac Type Severity Reaction Status Date / Time No Known Drug Allergies Allergy Verified 06/11/19 05:39 Visit Medications: Current Medications Albuterol/Ipratropium (Duoneb) 3 ml NEB Q4H PRN PRN Reason: Wheezing Bupropion HCl (Wellbutrin Xl) 300 mg PO QAM [facility] Last Admin: 06/11/19 08:38 Dose: 300 mg Calcium/Vitamin D (Caltrate 600 + Vit D) 1 tab PO DAILY [facility] Last Admin: 06/11/19 08:39 Dose: 1 tab Digoxin (Lanoxin) 0.25 mg PO Q6HR [facility] Stop: 06/11/19 12:01 Last Admin: 06/11/19 04:56 Dose: 0.25 mg Enoxaparin Sodium (Lovenox) 40 mg SC 2100 [facility] Last Admin: 06/10/19 20:44 Dose: 40 mg Estradiol (Estrace) 0.5 mg PO HS [facility] Last Admin: 06/10/19 20:56 Dose: 0.5 mg Hydralazine HCl (Apresoline) 10 mg SLOW IVP Q6H PRN PRN Reason: SBP Greater Than 170 Levothyroxine Sodium (Synthroid) 150 mcg PO 0600 [facility] Last Admin: 06/11/19 04:56 Dose: 150 mcg Medroxyprogesterone Acetate (Provera) 2.5 mg PO HS [facility] Last Admin: 06/10/19 20:44 Dose: 2.5 mg Multivitamins (Theragran) 1 tab PO DAILY [facility] Last Admin: 06/11/19 08:38 Dose: 1 tab Pantoprazole Sodium (Protonix) 40 mg PO BID [facility] Last Admin: 06/11/19 08:38 Dose: 40 mg Sodium Chloride (Flush - Normal Saline) 10 ml IVF Q12HR [facility] Last Admin: 06/11/19 08:40 Dose: 10 ml Sodium Chloride (Flush - Normal Saline) 10 ml IVF PRN PRN PRN Reason: Saline Flush Tramadol HCl (Ultram) 50 mg PO Q6H PRN PRN Reason: Pain Last Admin: 06/11/19 04:56 Dose: 50 mg Vital Signs & Weight: Vital Signs Temp Pulse Resp BP Pulse Ox 06/11/19 07:44 87 16 136/71 97 06/11/19 03:38 98.6 F 96 14 117/58 L 93 L 06/10/19 23:54 92 06/10/19 23:24 116/59 L Weight 144 lb 1.6 oz - Physical Exam General: alert & oriented x3, appears well HEENT: mucus membranes moist Neck: supple neck Cardiac: regular rate and rhythm, no murmur Lungs: clear to auscultation, normal breath sounds Neuro: grossly intact Extremities: no cyanosis, no edema Skin: clear - Labs Result Diagrams: 06/10/19 09:18 06/10/19 09:18 Troponin/CKMB Troponin I 0.028 ng/mL (< 0.028) 06/10/19 15:50 - Assessment/Plan Assessment/Plan: 1. Recurrent SVT 2. Recent hip fracture Patient very anxious, but wanting to proceed with ablation. Explained unsure of timing of procedure. Will consult PT for recent hip fracture. No changes to meds today.
[2019-06-11] MEDS ORDERED: Ibuprofen 200 MG TAB PO SCH (13:45)
--- NOTE | 2019-06-11 16:26 | PDOC.HOSPP ---
- Subjective Encounter Date: 06/11/19 Encounter Time: 10:20 Subjective: Pt seen for followup re; SVT. Feels better. c/o louise hand arthritis, usually uses ibuprofen and Aspercreme. - Objective Vital Signs & Weight: Vital Signs (12 hours) Temp Pulse Resp BP Pulse Ox 06/11/19 15:37 98.3 F 89 20 133/67 95 06/11/19 11:30 89 06/11/19 11:27 98.8 F 90 19 134/68 95 06/11/19 07:44 87 16 136/71 97 Weight Weight 144 lb 1.6 oz Result Diagrams: 06/10/19 09:18 06/10/19 09:18 Additional Labs: Labs and MARs reviewed by me EKG Reviewed by me: Yes (Tele: sinus tachycardia.) Hospitalist ROS - Review of Systems Constitutional: denies: fever, chills, sweats, weakness, malaise Respiratory: denies: cough, dry, shortness of breath, hemoptysis, SOB with excertion, pleuritic pain, sputum, wheezing Cardiovascular: denies: chest pain, palpitations, orthopnea, paroxysmal noc. dyspnea, edema, light headedness Gastrointestinal: denies: nausea, vomiting, abdominal pain, diarrhea, constipation, melena, hematochezia Genitourinary: denies: dysuria, frequency, incontinence, hematuria, retention Musculoskeletal: reports: hand pain - Medication Medications: Active Medications Generic Name Dose Route Start Last Admin Trade Name Freq PRN Reason Stop Dose Admin Bupropion HCl 300 mg 06/11/19 09:00 06/11/19 08:38 Wellbutrin Xl PO 300 mg QAM [facility] Administration Calcium/Vitamin D 1 tab 06/11/19 09:00 06/11/19 08:39 Caltrate 600 + Vit D PO 1 tab DAILY [facility] Administration Enoxaparin Sodium 40 mg 06/10/19 21:00 06/10/19 20:44 Lovenox SC 40 mg 2100 [facility] Administration Estradiol 0.5 mg 06/10/19 21:00 06/10/19 20:56 Estrace PO 0.5 mg HS [facility] Administration Levothyroxine Sodium 150 mcg 06/11/19 06:00 06/11/19 04:56 Synthroid PO 150 mcg 0600 [facility] Administration Medroxyprogesterone Acetate 2.5 mg 06/10/19 21:00 06/10/19 20:44 Provera PO 2.5 mg HS [facility] Administration Multivitamins 1 tab 06/11/19 09:00 06/11/19 08:38 Theragran PO 1 tab DAILY [facility] Administration Pantoprazole Sodium 40 mg 06/11/19 09:00 06/11/19 08:38 Protonix PO 40 mg BID [facility] Administration Sodium Chloride 10 ml 06/10/19 21:00 06/11/19 08:40 Flush - Normal Saline IVF 10 ml Q12HR [facility] Administration Tramadol HCl 50 mg 06/10/19 18:06 06/11/19 11:32 Ultram PO 50 mg Q6H PRN Administration Pain - Exam General Appearance: NAD Eye: anicteric sclera ENT: moist mucosa Neck: supple, symmetric Heart - other findings: S1, S2, reg, tachy Respiratory: CTAB, no wheezes, no rales, no ronchi Gastrointestinal: soft, non-tender, non-distended, normal bowel sounds Extremities: no cyanosis Musculoskeletal - other findings: s/p R hip surgery Psychiatric: normal affect, normal behavior, A&O x 3 Hosp A/P (1) SVT (supraventricular tachycardia) Code(s): I47.1 - SUPRAVENTRICULAR TACHYCARDIA Status: Acute (2) Arthritis Code(s): M19.90 - UNSPECIFIED OSTEOARTHRITIS, UNSPECIFIED SITE Status: Chronic (3) Hypothyroidism Code(s): E03.9 - HYPOTHYROIDISM, UNSPECIFIED Status: Chronic (4) GERD (gastroesophageal reflux disease) Code(s): K21.9 - GASTRO-ESOPHAGEAL REFLUX DISEASE WITHOUT ESOPHAGITIS Status: Chronic - Plan out of bed/ambulate Add PRN ibuprofen. Pt deciding re: ablation for SVT, aill be NPO after midnight. GERD stable. Pt had concurfrent Inpatient and Observation orders yesterday. The intent was to have the patient on Observation status.
[2019-06-11] MEDS: Enoxaparin Sodium 40 MG/0.4 ML SYRINGE SC SCH (20:25)
[2019-06-11] MEDS: Estradiol 1 MG TAB PO SCH (20:26)
[2019-06-11] MEDS: medroxyPROGESTERone Acetate 2.5 MG TAB PO SCH (20:26)
[2019-06-11] MEDS ORDERED: Estradiol 1 MG TAB PO SCH (21:00)
[2019-06-12] MEDS: Levothyroxine Sodium 75 MCG TAB PO SCH (05:13)
[2019-06-12] MEDS: Bupropion 150 MG XL TAB PO SCH (08:11)
[2019-06-12] MEDS: Calcium Carbonate + Vit D 1 TAB PO SCH (08:11)
[2019-06-12] MEDS: Multivit, Therapeutic 1 TAB PO SCH (08:11)
[2019-06-12] MEDS: traMADol HCl 50 MG TAB PO PRN (12:47)
[2019-06-12 17:52] LABS: #Eosinphils 0.1 thou/uL (0.0-0.7); #Lymphocytes 0.7 thou/uL (1.20-3.40); #Monocytes 0.6 thou/uL (0.11-0.59); #Neutrophils 3.9 thou/uL (1.40-6.50); %Basophils 0.3 % (0.0-1.0); %Eosinophils 2.8 % (0.0-10.0); %Lymphocytes 13.4 % (21.0-51.0); %Monocytes 10.6 % (0.0-10.0); %Neutrophils 72.9 % (42.0-75.0); Hemoglobin 10.6 g/dL (12.0-16.0); Mean Corpuscular HGB CONC 32.8 g/dL (32.0-36.0); Mean Corpuscular Hemoglobin 28.5 pg (27.0-31.0); Platelet Count 198 thou/uL (130-400); RBC Distribution Width 14.1 % (11.5-14.5); White Blood Cell (WBC) Count 5.3 thou/uL (4.8-10.8)
--- NOTE | 2019-06-12 18:10 | PDOC.HOSPP ---
- Subjective Encounter Date: 06/12/19 Encounter Time: 08:40 Subjective: Pt seen for followup re; supraventricular tachycardia. Feels better. - Objective Vital Signs & Weight: Vital Signs (12 hours) Temp Pulse Pulse Pulse Resp BP BP 06/12/19 15:33 81 89 138/74 118/78 06/12/19 15:12 97.4 F L 86 20 06/12/19 11:19 98.1 F 89 14 06/12/19 08:04 97.7 F 81 18 BP Pulse Ox 06/12/19 15:33 06/12/19 15:12 120/68 97 06/12/19 11:19 130/62 96 06/12/19 08:04 129/71 93 L Weight Admit Weight 144 lb 1.6 oz Weight 144 lb 1.6 oz I&O: 06/11/19 06/12/19 06/13/19 06:59 06:59 06:59 Intake Total 2160 Output Total 4000 Balance -1840 Result Diagrams: 06/12/19 17:40 06/10/19 09:18 Additional Labs: Labs and MARs reviewed by me EKG Reviewed by me: Yes (Tele: NSR) Hospitalist ROS - Review of Systems Cardiovascular: denies: chest pain, palpitations, orthopnea, paroxysmal noc. dyspnea, edema, light headedness Gastrointestinal: denies: nausea, vomiting, abdominal pain, diarrhea, constipation - Medication Medications: Active Medications Generic Name Dose Route Start Last Admin Trade Name Freq PRN Reason Stop Dose Admin Bupropion HCl 300 mg 06/11/19 09:00 06/12/19 08:11 Wellbutrin Xl PO 300 mg QAM TASHA Administration Calcium/Vitamin D 1 tab 06/11/19 09:00 06/12/19 08:11 Caltrate 600 + Vit D PO 1 tab DAILY TASHA Administration Enoxaparin Sodium 40 mg 06/10/19 21:00 06/11/19 20:25 Lovenox SC 40 mg 2100 TASHA Administration Estradiol 0.5 mg 06/10/19 21:00 06/11/19 20:26 Estrace PO 0.5 mg HS TASHA Administration Levothyroxine Sodium 150 mcg 06/11/19 06:00 06/12/19 05:13 Synthroid PO 150 mcg 0600 TASHA Administration Medroxyprogesterone Acetate 2.5 mg 06/10/19 21:00 06/11/19 20:26 Provera PO 2.5 mg HS TASHA Administration Multivitamins 1 tab 06/11/19 09:00 06/12/19 08:11 Theragran PO 1 tab DAILY TASHA Administration Pantoprazole Sodium 40 mg 06/11/19 09:00 06/12/19 08:11 Protonix PO 40 mg BID TASHA Administration Sodium Chloride 10 ml 06/10/19 21:00 06/12/19 08:11 Flush - Normal Saline IVF 10 ml Q12HR TASHA Administration Tramadol HCl 50 mg 06/10/19 18:06 06/12/19 12:47 Ultram PO 50 mg Q6H PRN Administration Pain - Exam General Appearance: NAD Eye: PERRL, anicteric sclera ENT: moist mucosa Neck: supple, no JVD Heart: RRR, no gallops Respiratory: CTAB, normal chest expansion Gastrointestinal: soft, non-tender Extremities: no clubbing Musculoskeletal: no muscle wasting Psychiatric: normal affect, normal behavior Hosp A/P (1) SVT (supraventricular tachycardia) Code(s): I47.1 - SUPRAVENTRICULAR TACHYCARDIA Status: Acute (2) Arthritis Code(s): M19.90 - UNSPECIFIED OSTEOARTHRITIS, UNSPECIFIED SITE Status: Chronic (3) Hypothyroidism Code(s): E03.9 - HYPOTHYROIDISM, UNSPECIFIED Status: Chronic (4) GERD (gastroesophageal reflux disease) Code(s): K21.9 - GASTRO-ESOPHAGEAL REFLUX DISEASE WITHOUT ESOPHAGITIS Status: Chronic - Plan No recurrence of SVT PRN ibuprofen and Aspercreme helping. For ablation tomorrow GERD stable.
[2019-06-12 18:11] LABS: Anion Gap 11 mmol/L (10-20); BUN (Urea Nitrogen) 16 mg/dL (9.8-20.1); Calc. Creatinine Clearance 65 mL/min (70-130); Calcium 8.4 mg/dL (7.8-10.44); Carbon Dioxide 26 mmol/L (23-31); Chloride 101 mmol/L (98-107); Estimated GFR-MDRD 76; Glucose 99 mg/dL (83-110); Potassium 4.1 mmol/L (3.5-5.1); Sodium 134 mmol/L (136-145)
[2019-06-12] MEDS: medroxyPROGESTERone Acetate 2.5 MG TAB PO SCH (21:28)
[2019-06-12] MEDS: Ibuprofen 200 MG TAB PO PRN (21:28)
[2019-06-12] MEDS: Estradiol 1 MG TAB PO SCH (21:28)
[2019-06-12] MEDS: Enoxaparin Sodium 40 MG/0.4 ML SYRINGE SC SCH (21:28)
[2019-06-13] MEDS: traMADol HCl 50 MG TAB PO PRN ×3 (01:46→18:23)
[2019-06-13] MEDS: Levothyroxine Sodium 75 MCG TAB PO SCH (06:20)
[2019-06-13] MEDS: Calcium Carbonate + Vit D 1 TAB PO SCH (09:11)
[2019-06-13] MEDS: Multivit, Therapeutic 1 TAB PO SCH (09:11)
[2019-06-13] MEDS ORDERED: Propofol 500 MG/50 ML VIAL ONE ×2 (11:29→14:29)
[2019-06-13] MEDS ORDERED: PHENYLEPHRINE-NS 100 MCG/ML 10 ML SYRINGE ONE (11:41)
[2019-06-13] MEDS ORDERED: CEFAZOLIN 1 GM VIAL ONE (11:42)
[2019-06-13] MEDS ORDERED: Heparin 10,000 UNITS/1 ML VIAL ONE (11:43)
[2019-06-13] MEDS ORDERED: Heparin (Artline) 1,500 ML ONE (11:43)
--- NOTE | 2019-06-13 11:46 | CON ---
DATE OF CONSULTATION: 06/13/2019 This is Hina Gallo NP dictating a report for Nick Coy MD. Consultation was performed in conjunction with Dr. Nick Coy. REASON FOR CONSULTATION: Supraventricular tachycardia. HISTORY OF PRESENT ILLNESS: Ms. Paula is a 78-year-old woman, known to our practice for history of SVT. She was initially seen in our practice in early 2019. 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 She was symptomatic with fatigue and tiredness. She was recommended to undergo ablation, though the patient had canceled the procedure at that time. Ms. Paula unfortunately has frequent mechanical falls at home. She recently fell again and had fractured her right hip. She underwent ORIF last week and was discharged to rehab only to quickly turn around and come back to the hospital for palpitations. She was given IV diltiazem, which slightly lowered her heart rate, but she continued to persist in SVT of 280 beats per minute. This is prompting EP consultation for possible ablation. Ms. Paula currently feels well, but continues to have pain from her recent right hip surgery. She has been up, ambulating with physical therapy, and feels her pain is high, but tolerable. She denies any current or ongoing heart racing, palpitations, chest pain, pressure, syncope, near syncope, stroke, or stroke-like symptoms. REVIEW OF SYSTEMS: Twelve-point review of systems was negative except that listed above in HPI. PAST MEDICAL HISTORY: 1. 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 Preserved LVEF at 55% to 60% with mild MR and TR, diastolic dysfunction per echo on 03/27/2018. 3. Hypothyroidism. 4. Gastroesophageal reflux. 5. Osteoporosis. 6. Frequent mechanical falls. 7. Left hip surgery in 03/2018. 8. Right hip surgery on 06/07/2019, ORIF. SOCIAL HISTORY: Denies tobacco or illicit drug use. Positive for occasional alcohol. FAMILY HISTORY: Negative for early onset CAD or sudden cardiac . MEDICATIONS: 1. Centrum Silver daily. 2. Estradiol daily. 3. Omeprazole daily. 4. Calcium citrate with vitamin D daily. 5. Synthroid 150 mcg daily. 6. Hydroxyprogesterone daily. 7. Bupropion daily. 8. Glucosamine daily. OBJECTIVE: VITAL SIGNS: Temperature 98.1, pulse 82, blood pressure 136/79, respirations 16, and oxygen is 100% on room air. GENERAL: The patient is alert and oriented. Speech is clear. Affect is appropriate. She is in no apparent distress at the time of exam. HEENT: She is normocephalic and atraumatic. Sclerae anicteric. EOMs are intact. Oral mucosa is moist and pink with adequate dentition. NECK: Supple without jugular venous distention. There is no lymphadenopathy. Carotids are without bruit. HEART: Rate is irregularly irregular with a crisp S1 and S2. No significant murmur, rub, or gallop is appreciated. PMI is nondisplaced. LUNGS: Clear to auscultation bilaterally without wheezes, crackles, or rhonchi. Respirations are even and unlabored with good bilateral excursion. ABDOMEN: Soft and nontender without palpable masses. EXTREMITIES: There was a recent incision along her right hip. Edges are well approximated. No signs of infection are ongoing. Gait is slow and steady with a walker. NEUROLOGIC: Grossly intact and nonfocal. LABORATORY DATA: Hematology was unremarkable. Chemistry, creatinine 0.74. TSH 0.62. Troponins negative. BMP normal. Telemetry and EKG: The patient is currently in sinus rhythm, but the EKG from the emergency room does show SVT at a rate of 178 beats per minute, suggestive of likely AVNRT with short RP interval. IMPRESSION: 1. Recurrent supraventricular tachycardia. 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 2. Frequent mechanical falls. 3. Frequent fractures. 4. Recent right hip open reduction and internal fixation on 06/07/2019. PLAN AND RECOMMENDATIONS: We discussed treatment options including medications versus ablative procedure. 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 She is definitely in favor of proceeding with the ablation at this time versus medication to try to alleviate her symptoms. She has been on diltiazem in the past and has struggled with hypotension as a result of her AV emma blocking therapy. We discussed the chance for infection, bleeding, tamponade, and bradycardia requiring pacing as well as a recurrence of arrhythmias with possible need for redo ablation. She understands and is willing to proceed. We will keep her n.p.o. today and plan to do the procedure later today with Dr. Coy, who is in agreement with this plan as well. Dr. Coy has interviewed and examined the patient and agrees with plan of care. Job ID: [id number] MTDD
[2019-06-13] MEDS ORDERED: Fentanyl 100 MCG/2 ML VIAL ONE (12:22)
[2019-06-13] MEDS ORDERED: Isoproterenol 0.2 MG/1 ML AMP ONE (14:28)
[2019-06-13] MEDS ORDERED: Adenosine 6 MG/2 ML VIAL ONE (14:57)
[2019-06-13] MEDS ORDERED: Ondansetron HCl/PF 4 MG/2 ML Vial IVP PRN (15:27)
[2019-06-13] MEDS ORDERED: Promethazine HCl 25 MG/ML VIAL IM PRN (15:27)
[2019-06-13] MEDS ORDERED: Promethazine HCl 25 MG/ML VIAL SLOW IVP PRN (15:27)
[2019-06-13] MEDS ORDERED: Polyethylene Glycol OPTH DROP 15 ML BOT EA EYE PRN (17:35)
[2019-06-13] MEDS: Bupropion 150 MG XL TAB PO SCH (18:23)
[2019-06-13] MEDS: Fluticasone Propionate Nasal Spray 16 gm Bottle NASAL PRN (18:24)
--- NOTE | 2019-06-13 19:12 | PDOC.HOSPP ---
- Subjective Encounter Date: 06/13/19 Encounter Time: 09:20 Subjective: Pt seen for followup re: SVT. No new complaints today. - Objective Vital Signs & Weight: Vital Signs (12 hours) Temp Pulse Resp BP BP Pulse Ox 06/13/19 16:14 98.5 F 80 20 112/62 100 06/13/19 11:28 98.7 F 84 17 145/70 H 99 06/13/19 08:49 98.1 F 82 16 136/79 100 Weight Admit Weight 144 lb 1.6 oz Weight 140 lb 8 oz I&O: 06/12/19 06/13/19 06/14/19 06:59 06:59 06:59 Intake Total 2160 2800 240 Output Total 4000 3125 425 Balance -1840 -325 -185 Result Diagrams: 06/12/19 17:40 06/12/19 17:40 Additional Labs: Labs and MARs reviewed by me EKG Reviewed by me: Yes (Tele: NSR) Hospitalist ROS - Review of Systems Cardiovascular: denies: chest pain, palpitations, orthopnea, paroxysmal noc. dyspnea, edema, light headedness Gastrointestinal: denies: nausea, vomiting, abdominal pain, diarrhea, constipation, melena, hematochezia - Medication Medications: Active Medications Generic Name Dose Route Start Last Admin Trade Name Freq PRN Reason Stop Dose Admin Bupropion HCl 300 mg 06/11/19 09:00 06/13/19 18:23 Wellbutrin Xl PO 300 mg QAM TASHA Administration Calcium/Vitamin D 1 tab 06/11/19 09:00 06/13/19 09:11 Caltrate 600 + Vit D PO Not Given DAILY TASHA Enoxaparin Sodium 40 mg 06/10/19 21:00 06/12/19 21:28 Lovenox SC 40 mg 2100 TASHA Administration Estradiol 0.5 mg 06/10/19 21:00 06/12/19 21:28 Estrace PO 0.5 mg HS TASHA Administration Fluticasone Propionate 0 gm 06/13/19 17:35 06/13/19 18:24 Flonase Nasal [place] NASAL 1 spr DAILYPRN PRN Administration . Ibuprofen 400 mg 06/11/19 13:42 06/12/19 21:28 Motrin PO 400 mg Q8H PRN Administration Pain Medroxyprogesterone Acetate 2.5 mg 06/10/19 21:00 06/12/19 21:28 Provera PO 2.5 mg HS TASHA Administration Multivitamins 1 tab 06/11/19 09:00 06/13/19 09:11 Theragran PO Not Given DAILY TASHA Pantoprazole Sodium 40 mg 06/11/19 09:00 06/13/19 09:11 Protonix PO Not Given BID TASHA Propylene Glycol 1 drop 06/13/19 17:35 06/13/19 18:24 Systane Opth Drop 15ml Bot EA EYE 1 drop BIDPRN PRN Administration Dry Eyes Sodium Chloride 10 ml 06/10/19 21:00 06/13/19 09:12 Flush - Normal Saline IVF 10 ml Q12HR TASHA Administration Tramadol HCl 50 mg 06/10/19 18:06 06/13/19 18:23 Ultram PO 50 mg Q6H PRN Administration Pain - Exam General Appearance: NAD Eye: anicteric sclera ENT: moist mucosa Neck: supple Heart: RRR Respiratory: CTAB Gastrointestinal: soft Skin: no rashes Psychiatric: normal affect, normal behavior Hosp A/P (1) SVT (supraventricular tachycardia) Code(s): I47.1 - SUPRAVENTRICULAR TACHYCARDIA Status: Acute (2) Arthritis Code(s): M19.90 - UNSPECIFIED OSTEOARTHRITIS, UNSPECIFIED SITE Status: Chronic (3) Hypothyroidism Code(s): E03.9 - HYPOTHYROIDISM, UNSPECIFIED Status: Chronic (4) GERD (gastroesophageal reflux disease) Code(s): K21.9 - GASTRO-ESOPHAGEAL REFLUX DISEASE WITHOUT ESOPHAGITIS Status: Chronic - Plan No recurrence of SVT PRN ibuprofen and Aspercreme for arthritis. For ablation today.
[2019-06-13] MEDS: Enoxaparin Sodium 40 MG/0.4 ML SYRINGE SC SCH (20:06)
[2019-06-13] MEDS: Estradiol 1 MG TAB PO SCH (20:06)
[2019-06-13] MEDS: medroxyPROGESTERone Acetate 2.5 MG TAB PO SCH (20:07)
[2019-06-13] MEDS: Ibuprofen 200 MG TAB PO PRN (21:43)
--- NOTE | 2019-06-13 23:42 | OP ---
DATE OF PROCEDURE: 06/13/2019 PROCEDURE: 1. Comprehensive EP testing with 3D mapping and ablation of SVT. 2. Intracardiac echo. CLINICAL INDICATION: History of SVT. ASA CLASSIFICATION: Two. ANESTHESIA: Total IV anesthesia per Anesthesiology. ADDITIONAL CARDIAC MEDICATIONS: Isoproterenol 5 mcg bolus, adenosine 6 mg IV, total heparin 0, total protamine 0, total fluoroscopy 0, total radiofrequency current 1 minute 32 seconds. ACUTE COMPLICATIONS: None apparent. METHODS: After informed consent were obtained, the patient was taken to the EP lab in a fasting state. Both groins were prepped and draped using ultrasound guidance. Femoral veins were accessed and wires were inserted into the central venous system. Wires were used to place an 11-[place] and 8-[place] sheath in left groin. Two 8-[place] sheaths in the right groin. All 8-[place] sheaths were then replaced by long sheaths for catheter stability. An echo probe was placed in left groin, advanced to the right atrium, right ventricle for imaging. A circular and ablation catheter placed in the right femoral vein, advanced to the right atrium. A 3D map was obtained of the right atrium and the coronary sinus. A PentaRay was placed in the right ventricle for pacing. Programmed stimulation was performed. The patient was found to have typical AV emma reentrant tachycardia. This was mapped and ablated. After ablation, there was no further inducible arrhythmias and no further evidence of dual pathways. At the conclusion of procedure, catheters were withdrawn, sheaths were pulled, hemostasis was achieved with suture closure results from: 1. Baseline intervals, HV interval 45 milliseconds. 2. Atrial function. No atrial arrhythmias were seen from program stimulation. 3. Av emma function: Anterograde block was at 320 milliseconds when pacing from the coronary sinus. Retrograde block was at 340 milliseconds. The patient had easily inducible AV emma reentrant tachycardia. Cycle length 360 milliseconds. Pacing from the ventricle at the time when the His bundle was refractory, did not advance the tachycardia. Adenosine did terminate the arrhythmia with an atrial signal. Ablation was delivered eliminating all slow pathway function. 4. Ablation details, a total of 1 minute 32 seconds of RF were delivered with a [email or web address] Chase open-irrigated, contact force, sensor enabled ablation catheter. IMPRESSION: Successful ablation of Atrioventricular emma reentrant tachycardia. RECOMMENDATION: Aspirin therapy 81 mg daily once the patient has been cleared with orthopedic surgery. Job ID: [id number]
[2019-06-14] MEDS: traMADol HCl 50 MG TAB PO PRN ×3 (02:01→20:05)
[2019-06-14] MEDS: Levothyroxine 150 MCG TAB PO SCH (05:31)
[2019-06-14] MEDS: Fluticasone Propionate Nasal Spray 16 gm Bottle NASAL PRN (05:33)
--- NOTE | 2019-06-14 08:50 | PDOC.EP ---
- Subjective Date: 06/14/19 Time: 08:48 Interval History: follow up post EPS and SVT ablation on 06/13. Feels well. No events overnight. Eager to return to rehab - Review of Systems Constitutional: denies: chills, fever, malaise, sweats, weakness, other Respiratory: denies: cough, dry, hemoptysis, pleuritic pain, shortness of breath , SOB with excertion, sputum, wheezing, other Cardiology: denies: chest pain, edema, heart racing, light headedness, palpitations - Objective Allergies/Adverse Reactions: Allergies Allergy/AdvReac Type Severity Reaction Status Date / Time No Known Drug Allergies Allergy Verified 06/11/19 05:39 Current Medications Albuterol/Ipratropium (Duoneb) 3 ml NEB Q4H PRN PRN Reason: Wheezing Bupropion HCl (Wellbutrin Xl) 300 mg PO QAM [facility] Last Admin: 06/13/19 18:23 Dose: 300 mg Calcium/Vitamin D (Caltrate 600 + Vit D) 1 tab PO DAILY [facility] Last Admin: 06/13/19 09:11 Dose: Not Given Enoxaparin Sodium (Lovenox) 40 mg SC 2100 [facility] Last Admin: 06/13/19 20:06 Dose: 40 mg Estradiol (Estrace) 0.5 mg PO [facility] Last Admin: 06/13/19 20:06 Dose: 0.5 mg Fluticasone Propionate (Flonase Nasal [place]) 0 gm NASAL DAILYPRN PRN PRN Reason: . Last Admin: 06/14/19 05:33 Dose: 1 spr Hydralazine HCl (Apresoline) 10 mg SLOW IVP Q6H PRN PRN Reason: SBP Greater Than 170 Ibuprofen (Motrin) 400 mg PO Q8H PRN PRN Reason: Pain Last Admin: 06/13/19 21:43 Dose: 400 mg Levothyroxine Sodium (Synthroid) 150 mcg PO 0600 [facility] Last Admin: 06/14/19 05:31 Dose: 150 mcg Medroxyprogesterone Acetate (Provera) 2.5 mg PO HS [facility] Last Admin: 06/13/19 20:07 Dose: 2.5 mg Multivitamins (Theragran) 1 tab PO DAILY [facility] Last Admin: 06/13/19 09:11 Dose: Not Given Pantoprazole Sodium (Protonix) 40 mg PO BID TASHA Last Admin: 06/13/19 20:07 Dose: 40 mg Propylene Glycol (Systane Opth Drop 15ml Bot) 1 drop EA EYE BIDPRN PRN PRN Reason: Dry Eyes Last Admin: 06/13/19 18:24 Dose: 1 drop Sodium Chloride (Flush - Normal Saline) 10 ml IVF Q12HR TASHA Last Admin: 06/13/19 20:08 Dose: 10 ml Sodium Chloride (Flush - Normal Saline) 10 ml IVF PRN PRN PRN Reason: Saline Flush Tramadol HCl (Ultram) 50 mg PO Q6H PRN PRN Reason: Pain Last Admin: 06/14/19 02:01 Dose: 50 mg Vital Signs & Weight: Vital Signs Temp Pulse Resp BP Pulse Ox 06/14/19 08:00 98.5 F 79 18 125/67 96 06/14/19 03:13 98.7 F 90 18 111/56 L 96 Admit Weight 144 lb 1.6 oz Weight 140 lb 8 oz I/O: I/O 06/13/19 06/14/19 06/15/19 06:59 06:59 06:59 Intake Total 2800 840 Output Total 3125 925 Balance -325 -85 - Physical Exam General: alert & oriented x3, appears well, no apparent distress, speech clear, affect appropriate HEENT: mucus membranes moist, normocephaly Neck: supple neck, midline trachea, no JVD/HJR, no masses, no bruit, no lymphadenopathy, no thromegaly Cardiology: regular rate and rhythm, no murmur, regular rate, regular rhythm, PMI nondisplaced Lungs: clear to auscultation, normal breath sounds, no wheeze, rales, rhonchi Neurology: grossly intact, sensory function intact, no lateralizing findings - Labs Result Diagrams: 06/12/19 17:40 06/12/19 17:40 - EKG Interpretation EKG shows: Sinus rhythm - Assessment/Plan Assessment/Plan: 1. Recurrent supraventricular tachycardia. 2. Frequent mechanical falls. 3. Frequent fractures. 4. Recent right hip open reduction and internal fixation on 06/07/2019. S/P EPS with ablation for AVNRT. Rhythm stable. No post ablation complications. OK for DC home. 6 week follow up will be arranged. No medication changes.
[2019-06-14] MEDS: Multivit, Therapeutic 1 TAB PO SCH (08:59)
[2019-06-14] MEDS: Bupropion 150 MG XL TAB PO SCH (08:59)
[2019-06-14] MEDS: Calcium Carbonate + Vit D 1 TAB PO SCH (08:59)
--- NOTE | 2019-06-14 19:10 | PDOC.HOSPP ---
- Subjective Encounter Date: 06/14/19 Encounter Time: 10:00 Subjective: Pt seen for followup re: SVT. No complaints today. - Objective Vital Signs & Weight: Vital Signs (12 hours) Temp Pulse Pulse Pulse Resp BP BP 06/14/19 15:50 97.6 F 89 13 06/14/19 11:16 98.5 F 92 16 06/14/19 10:57 101 H 92 118/84 128/71 06/14/19 08:00 98.5 F 79 18 BP Pulse Ox 06/14/19 15:50 102/62 98 06/14/19 11:16 128/71 98 06/14/19 10:57 06/14/19 08:00 125/67 96 Weight Admit Weight 144 lb 1.6 oz Weight 140 lb 8 oz I&O: 06/13/19 06/14/19 06/15/19 06:59 06:59 06:59 Intake Total 2800 840 720 Output Total 312 925 1600 Balance -325 -85 -880 Result Diagrams: 06/12/19 17:40 06/12/19 17:40 Additional Labs: Labs and MARs reviewed by me EKG Reviewed by me: Yes (Tele: NSR) Hospitalist ROS - Review of Systems Gastrointestinal: denies: nausea, vomiting, abdominal pain, diarrhea, constipation, melena, hematochezia Neurological: denies: weakness, numbness, incoordination, change in speech, confusion, seizures - Medication Medications: Active Medications Generic Name Dose Route Start Last Admin Trade Name Freq PRN Reason Stop Dose Admin Bupropion HCl 300 mg 06/11/19 09:00 06/14/19 08:59 Wellbutrin Xl PO 300 mg QAM TASHA Administration Calcium/Vitamin D 1 tab 06/11/19 09:00 06/14/19 08:59 Caltrate 600 + Vit D PO 1 tab DAILY TASHA Administration Enoxaparin Sodium 40 mg 06/10/19 21:00 06/13/19 20:06 Lovenox SC 40 mg 2100 TASHA Administration Estradiol 0.5 mg 06/10/19 21:00 06/13/19 20:06 Estrace PO 0.5 mg HS TASHA Administration Fluticasone Propionate 0 gm 06/13/19 17:35 06/14/19 05:33 Flonase Nasal [place] NASAL 1 spr DAILYPRN PRN Administration . Ibuprofen 400 mg 06/11/19 13:42 06/13/19 21:43 Motrin PO 400 mg Q8H PRN Administration Pain Levothyroxine Sodium 150 mcg 06/14/19 06:00 06/14/19 05:31 Synthroid PO 150 mcg 0600 TASHA Administration Medroxyprogesterone Acetate 2.5 mg 06/10/19 21:00 06/13/19 20:07 Provera PO 2.5 mg HS TASHA Administration Multivitamins 1 tab 06/11/19 09:00 06/14/19 08:59 Theragran PO 1 tab DAILY TASHA Administration Pantoprazole Sodium 40 mg 06/11/19 09:00 06/14/19 08:59 Protonix PO 40 mg BID TASHA Administration Propylene Glycol 1 drop 06/13/19 17:35 06/13/19 18:24 Systane Opth Drop 15ml Bot EA EYE 1 drop BIDPRN PRN Administration Dry Eyes Sodium Chloride 10 ml 06/10/19 21:00 06/14/19 09:01 Flush - Normal Saline IVF 10 ml Q12HR TASHA Administration Tramadol HCl 50 mg 06/10/19 18:06 06/14/19 08:59 Ultram PO 50 mg Q6H PRN Administration Pain - Exam General Appearance: NAD, awake alert Eye: anicteric sclera ENT: no oropharyngeal lesions Neck: no thyromegaly Heart: RRR Respiratory: CTAB Gastrointestinal: soft Extremities: no cyanosis Skin: no rashes Musculoskeletal: no muscle wasting Psychiatric: normal affect Hosp A/P (1) SVT (supraventricular tachycardia) Code(s): I47.1 - SUPRAVENTRICULAR TACHYCARDIA Status: Acute (2) Arthritis Code(s): M19.90 - UNSPECIFIED OSTEOARTHRITIS, UNSPECIFIED SITE Status: Chronic (3) Hypothyroidism Code(s): E03.9 - HYPOTHYROIDISM, UNSPECIFIED Status: Chronic (4) GERD (gastroesophageal reflux disease) Code(s): K21.9 - GASTRO-ESOPHAGEAL REFLUX DISEASE WITHOUT ESOPHAGITIS Status: Chronic - Plan PT/OT s/p ablation. Awaiting Inpt Rehab bed. Mobilize pt. Continue synthroid.
[2019-06-14] MEDS: medroxyPROGESTERone Acetate 2.5 MG TAB PO SCH (20:04)
[2019-06-14] MEDS: Estradiol 1 MG TAB PO SCH (20:05)
[2019-06-14] MEDS: Enoxaparin Sodium 40 MG/0.4 ML SYRINGE SC SCH (20:06)
[2019-06-14] MEDS: Ibuprofen 200 MG TAB PO PRN (23:20)
[2019-06-15] MEDS: Levothyroxine 150 MCG TAB PO SCH (05:33)
[2019-06-15] MEDS: Bupropion 150 MG XL TAB PO SCH (09:51)
[2019-06-15] MEDS: Calcium Carbonate + Vit D 1 TAB PO SCH (09:51)
[2019-06-15] MEDS: Multivit, Therapeutic 1 TAB PO SCH (09:52)
[2019-06-15 14:52] VITALS: BMI 23.3
[2019-06-15] MEDS ORDERED: valACYclovir 500 MG TAB PO SCH (15:00)
[2019-06-15 15:50] VITALS: BP 119/67; TEMP 98.5
--- NOTE | 2019-06-15 18:59 | DIS ---
DATE OF ADMISSION: 06/10/2019 DATE OF DISCHARGE: 06/15/2019 PRIMARY CARE PROVIDER: Corinna Hinton MD DISCHARGE DIAGNOSES: 1. Supraventricular tachycardia. 2. Hyponatremia. 3. Herpes zoster. CONDITION OF PATIENT ON THE DAY OF DISCHARGE: Stable. I assessed Ms. Paula on the day of discharge. She denies any chest pain or shortness of breath. Vital signs are stable. S1 and S2 are heard, regular. Lungs are clear to auscultation bilaterally. DISCHARGE MEDICATIONS: In addition to her pre-admission medications as dictated in my history and physical note dated 06/10/2019, she is being discharged on: 1. Flonase nasal spray p.r.n. 2. Ibuprofen p.r.n. 3. Valacyclovir 1000 mg 3 times a day for 7 days. CONSULTATIONS DURING THIS HOSPITALIZATION: 1. Cardiology, Dr. Hanks. 2. Electrophysiology, Dr. Coy. HOSPITAL COURSE: Ms. Paula is a pleasant 78-year-old lady, who was admitted to [facility] on 06/10/2019, for supraventricular tachycardia. Please refer to my history and physical note dated 06/10/2019, for further details. She was seen by Cardiology and Electrophysiology Services. On 06/13, she underwent ablation for supraventricular tachycardia. She continued to improve. On 06/15, she was found to have herpes zoster. She has been started on valacyclovir and is being discharged back to inpatient Rehab, from where she was admitted to the hospital. DISCHARGE DESTINATION: Inpatient rehab. DIET: Heart healthy. ACTIVITY: Activity as prior to this admission, since she had recent hip surgery. Job ID: [id number]
== END 2019-06-15 16:15 ==
LOC: ERS 08:55 → 2NO 12:18
PROVIDERS: ADMIT Internal Medicine; ATTEND Internal Medicine
PROC: 02583ZZ Destruction of Conduction Mechanism, Percutaneous Approach (ICD-10-PCS; principal; 2019-06-13)
PROC: 02K83ZZ Map Conduction Mechanism, Percutaneous Approach (ICD-10-PCS; 2019-06-13)
PROC: 4A023FZ Measurement of Cardiac Rhythm, Percutaneous Approach (ICD-10-PCS; 2019-06-13)
PROC: 4A0234Z Measurement of Cardiac Electrical Activity, Percutaneous Approach (ICD-10-PCS; 2019-06-13)
DX: I47.1 Supraventricular tachycardia (principal); E87.1 Hypo-osmolality and hyponatremia; B02.9 Zoster without complications; E03.9 Hypothyroidism, unspecified; K21.9 Gastro-esophageal reflux disease without esophagitis; M81.0 Age-related osteoporosis without current pathological fracture; F32.9 Major depressive disorder, single episode, unspecified; M19.90 Unspecified osteoarthritis, unspecified site; S42.001A Fracture of unspecified part of right clavicle, initial encounter for closed fracture; Z87.820 Personal history of traumatic brain injury; Z79.899 Other long term (current) drug therapy; Z98.890 Other specified postprocedural states
CPT/HCPCS: 71045; 71275; 76942; 80048; 83880; 84484 ×2; 85025; 93005; 93306; 93613; 93623; 93653; 93662; 96365; 96366; 96372 ×5; 96375; 97116 ×3; 97139 ×5; 97530 ×3; 99291; 99292; C1731; C1759; C1760; C1769; G0378 ×7; 36415; 84443; J0153; J0690; J1644; J1650; J2270; J2704; J3010; J3490; Q9967